=== PATIENT | male | born 1945 | race Caucasian/White ===

== ENCOUNTER 2019-06-20 11:55 | Inpatient (IN) | payer MEDICARE ==
[2019-06-20] VITALS (16 sets, daily range): BP systolic 94–160; BP diastolic 44–101
[~2019-06-20] VITALS: Ht 179.1 cm; Wt 90.7 kg
[~2019-06-20 11:55] MED LIST: ACET65TA; ACTO15TA; CARV3.12; CLAR5CHW; COUM1TAB14; FEOSOL; GLUC1000; LISI20TA5; SIMV80TA; VITA500T; [UNRECOGNIZED DRUG - OTHER]
[2019-06-20] MEDS ORDERED: CEFU1TAB20 PO ×2 (12:27→14:44)
[2019-06-20] MEDS ORDERED: NITR0.4S14 SL (12:27)
[2019-06-20] MEDS ORDERED: POTA20TA6 PO ×2 (12:27→14:44)
[2019-06-20] MEDS ORDERED: TORS20TA2 PO ×2 (12:27→14:44)
[2019-06-20] MEDS ORDERED: PRAD75CA5 PO ×2 (12:27→14:44)
[2019-06-20] MEDS ORDERED: AZIT-12 PO (12:27)
[2019-06-20] MEDS ORDERED: FUROSEMIDE 100 MG/10 ML VIAL (J1940) IV ONE (12:30)
--- NOTE | 2019-06-20 12:55 | REP ---
Clinical: Cough and dyspnea. Technique: Portable AP semiupright view. Comparison: 09/17/2009. Findings: Cardiomegaly is appreciated along with bilateral lower lobe infiltrates and possible small layering effusions. Pacemaker in satisfactory position. No pneumothorax. Skeletal structures intact. Impression: Cardiomegaly. Differential diagnosis includes pulmonary vascular congestion with edema versus pneumonia. Electronically Signed by Damion Jacobs MD 06/20/2019 12:46 P
[2019-06-20 13:00] LABS: VENOUS BASE EXCESS -0.2 (-2.0-2.0); VENOUS HCO3 26.4 MEQ/L (23.0-27.0); VENOUS O2 SATURATION 66.3 % (60.0-80.0); VENOUS PARTIAL PRESSURE CO2 51.1 mmHg (38.0-50.0); VENOUS PARTIAL PRESSURE O2 39.9 mmHg (30.0-50.0); VENOUS PH 7.331 UNITS (7.330-7.430); VENOUS STANDARD HCO3 23.6 MEQ/L
[2019-06-20 13:03] LABS: BASO % 0.1 % (0.0-1.0); HEMATOCRIT 37.8 % (42.0-52.0); HEMOGLOBIN 12.3 g/dl (13.5-17.5); LYMPH # 0.6 10^3/uL (1.5-5.0); LYMPH % 5.5 % (24.0-44.0); MEAN CORPUSCULAR HGB CONC 32.5 g/dl (32.0-36.5); MEAN CORPUSCULAR VOLUME 85.9 fl (80.0-96.0); MONO # 0.8 10^3/uL (0.0-0.8); MONO % 8.4 % (0.0-5.0); NEUTROPHILS # 8.5 10^3/uL (1.5-8.5); NEUTROPHILS % 85.5 % (36.0-66.0); PLATELET COUNT, AUTOMATED 281 10^3/uL (150-450); WHITE BLOOD COUNT 9.9 10^3/uL (4.0-10.0)
[2019-06-20 13:32] LABS: INR 2.86; PROTHROMBIN TIME 29.9 SECONDS (11.8-14.0)
[2019-06-20 13:35] LABS: ALBUMIN 3.3 GM/DL (3.2-5.2); ALT/SGPT 147 U/L (12-78); BILIRUBIN,DIRECT 0.4 MG/DL (0.0-0.2); BILIRUBIN,TOTAL 0.8 MG/DL (0.2-1.0); BLOOD UREA NITROGEN 91 MG/DL (7-18); CALCIUM LEVEL 9.4 MG/DL (8.8-10.2); CARBON DIOXIDE LEVEL 24 MEQ/L (21-32); CHLORIDE LEVEL 93 MEQ/L (98-107); CK-MB VALUE MASS 1.4 NG/ML (<3.6); CPK CREATINE PHOSPHOKINASE 71 U/L (39-308); CREATININE FOR GFR 3.45 MG/DL (0.70-1.30); GLOMERULAR FILTRATION RATE 18.7 (>42); GLUCOSE, FASTING 314 MG/DL (70-100); MB/CK RELATIVE INDEX 1.97 (< OR =4); NT-PRO BNP 592 PG/ML (<125); POTASSIUM SERUM 4.8 MEQ/L (3.5-5.1); SODIUM LEVEL 133 MEQ/L (136-145); TOTAL PROTEIN 6.6 GM/DL (6.4-8.2); TROPONIN I < 0.02 NG/ML (< 0.10)
[2019-06-20] MEDS ORDERED: D5W/0.9% SODIUM CHLORIDE 1,000 ML IV SCH (14:19)
[2019-06-20] MEDS ORDERED: ONDANSETRON 4MG/2ML VIAL (J2405) IV PRN (14:30)
[2019-06-20] MEDS ORDERED: PERCOCET 5MG/325MG TAB PO PRN (14:30)
[2019-06-20] MEDS ORDERED: LEVALBUTEROL 1.25 MG/0.5 ML CONCENTRATE NEB NEB PRN (14:30)
[2019-06-20] MEDS ORDERED: NORCO, ANEXSIA 5/325MG TABLET (HYDROcodone/ACETAMINOPHEN) PO PRN (14:30)
[2019-06-20] MEDS ORDERED: BISACODYL 10 MG SUPP PR PRN (14:30)
[2019-06-20] MEDS ORDERED: ACETAMINOPHEN TAB 650MG DOSE (2X325MG) PO PRN (14:30)
[2019-06-20] MEDS ORDERED: AZIT-10 PO (14:44)
[2019-06-20] MEDS ORDERED: BICA50TA9 PO (14:44)
[2019-06-20] MEDS ORDERED: ATOR80TA59 PO (14:44)
[2019-06-20] MEDS ORDERED: NITR4TASL SL (14:44)
[2019-06-20] MEDS ORDERED: METF-791 PO (14:44)
[2019-06-20] MEDS ORDERED: ASPI81TA85 PO (14:44)
[2019-06-20] MEDS ORDERED: APAP325T4 PO (14:44)
[2019-06-20] MEDS ORDERED: GLIP5TAB20 PO ×2 (14:44)
[2019-06-20] MEDS ORDERED: JARD1TAB3 PO (14:44)
[2019-06-20] MEDS ORDERED: FLOM0.4C39 PO (14:44)
--- NOTE | 2019-06-20 14:46 | ECHO ---
DATE OF PROCEDURE: 06/20/2019 AGE: 73 GENDER: Male PATIENT LOCATION: Currently in the emergency room being admitted to the intensive care unit due to this report. REFERRING PHYSICIAN: DOM Rene INDICATION: Marked systemic edema. Pericardial effusion (chest CT scan [facility]). 2D MEASUREMENTS: RV: 4.0 cm LV: 3.6 cm Septum: 1.3 cm Posterior wall: 1.3 cm Aortic root: 4.0 cm LA: 2.8 cm LVEF: 65% DOPPLER MEASUREMENTS: AV: 1.22 m/s LVOT: 0.56 m/s LVOT diameter: 2.0 cm Ascending aorta: 3.5 cm MV-E: 45, A: 57, EA ratio: 0.8 Early mitral deceleration time: 225 ms E prime medial: 5.4 A prime lateral: 9.7, E prime lateral 9.3 Average E/E prime ratio: 6.1/PCWP: 9.5 mmHg PV: 0.45 m/s Pulmonary artery acceleration time: 108 ms RVSP: 50 mmHg IVC: 3.0 cm COMMENTS Normal sinus rhythm with atrial sensing and tracking and consistent ventricular pacing. Paced QRS complexes with left bundle branch block (LBBB) configuration. M-mode and two-dimensional echocardiography was performed with pulsed, continuous wave, color flow and tissue Doppler studies. Moderate concentric left ventricle hypertrophy with paradoxical septal wall motion due to right ventricular pacing, yet preserved global resting systolic function. Current left atrial size is within normal limits with Doppler evidence of an impairment of left ventricle (LV) diastolic function but estimated mean left atrial pressure at this time within normal limits. Right ventricular free wall hypertrophy with at least mildly dilated right ventricular cavity. Preserved right ventricular free wall motion. At least moderately dilated right atrium and prominently dilated inferior vena cava with absent respiratory collapse in keeping with an elevated central venous pressure/right heart failure. Moderate aortic valvular sclerosis without stenosis or apparent insufficiency. At least borderline increased aortic root size, but normal proximal ascending aorta. Mildly thickened mitral annulus with "low flow" appearance to leaflet excursion, but no posterior systolic buckling. No more than trace mitral insufficiency. Normal appearing tricuspid valve with at least mild to moderate insufficiency. Pacing leads could be visualized traversing right heart structures, but no separate intracardiac mass. Huge pericardial effusion measuring as much as 3 cm anteriorly, 2.7 - 3 cm on the right side, 2.7 cm on the left side and 2.6 cm posteriorly. Undoubtedly contributing to compression of his heart with respiratory variation in pulsed flow signals. In light of the above test findings I have contacted Dr. Leonardo Martinez directly who is in the process of arranging the patient's admission to the intensive care unit for urgent pericardial drainage procedure.
[2019-06-20] MEDS ORDERED: MIDAZOLAM INJ 2 MG/2 ML VIAL (J2250) As Ordered ONE (14:48)
[2019-06-20] MEDS ORDERED: LIDOCAINE 1% MDV 20ML VIAL As Ordered ONE (14:48)
[2019-06-20] MEDS ORDERED: flumazeniL 0.5 MG/5 ML VIAL As Ordered ONE (14:49)
--- NOTE | 2019-06-20 14:58 | REP ---
Clinical: Cough and dyspnea. Cardiac and benign. Technique: Axial noncontrast images from the thoracic inlet to the upper abdomen with coronal and sagittal re-formations. Findings: A large pericardial effusion measuring 3.2 cm in with surrounds the heart along with pulmonary vascular congestion, interstitial edema, and moderate bilateral pleural effusions as well as upper abdominal ascites. Innumerable calcified mediastinal and hilar lymph nodes noted along with lingular and bibasilar atelectasis. Impression: 1. Large pericardial effusion along with pulmonary edema and scattered atelectasis. Electronically Signed by Damion Jacobs MD 06/20/2019 02:49 P
[2019-06-20] MEDS ORDERED: fentaNYL 100 MCG/2 ML INJECTION (J3010) As Ordered ONE (15:13)
[2019-06-20 15:20] LABS: ABG BASE EXCESS -2.1 (-2.0-2.0); ABG HCO3 21.3 MEQ/L (22.0-26.0); ABG O2 SATURATION 97.9 % (95.0-99.0); ABG PARTIAL PRESSURE CO2 32.2 mmHg (35.0-45.0); ABG PARTIAL PRESSURE O2 108.1 mmHg (75.0-100.0); ABG STANDARD HCO3 22.7 MEQ/L (22.0-26.0); ABG TOTAL CO2 22.3 MEQ/L (23.0-31.0); ABG pH (ARTERIAL) 7.438 UNITS (7.350-7.450)
[2019-06-20] MEDS ORDERED: BUPIVACAINE HCL 0.5% 10 ML VIAL As Ordered ONE (15:38)
[2019-06-20] MEDS ORDERED: BUPIVACAINE LIPOSOME/PF 1.3% 20ML VIAL (13.3MG/ML)(EXPAREL)(C9290 PER1MG) As Ordered ONE (15:38)
--- NOTE | 2019-06-20 16:14 | REP ---
Clinical: Status post pericardial drainage catheter. Comparison: 06/20/2019 at 12:41 p.m. Findings: Pericardial fluid is decreased and the cardiac silhouette is improved. Small/moderate pleural effusions (left greater than right) and bibasilar atelectasis unchanged. No pneumothorax. Skeletal structures intact. Impression: Decreased pericardial fluid. Pleural effusions and bibasilar atelectasis unchanged. Electronically Signed by Damion Jacobs MD 06/20/2019 04:06 P
[2019-06-20] MEDS ORDERED: fentaNYL 100 MCG/2 ML INJECTION (J3010) IV ONE (16:15)
[2019-06-20] MEDS ORDERED: MIDAZOLAM INJ 5 MG/ML VIAL (J2250) IV ONE (16:15)
[2019-06-20 16:32] LABS: LDH LACTATE DEHYDROGENASE 281 U/L (87-241)
[2019-06-20] MEDS ORDERED: FUROSEMIDE 40 MG/4 ML VIAL (J1940) IV ONE (17:00)
[2019-06-20 17:01] LABS: PH BODY FLUID 7.468 UNITS (NOT ESTABLISHED); SOURCE, BODY FLUID pH PLEURAL
[2019-06-20 17:09] LABS: AMYLASE, BODY FLUID 7 U/L (NOT ESTABLISHED); CHOLESTEROL, BODY FLUID < 50 MG/DL (NOT ESTABLISHED); LDH, BODY FLUID 982 U/L (NOT ESTABLISHED); SOURCE, BODY FLUID ALBUMIN PLEURAL; SOURCE, BODY FLUID AMYLASE PLEURAL; SOURCE, BODY FLUID CHOL PLEURAL; SOURCE, BODY FLUID GLUCOSE PLEURAL; SOURCE, BODY FLUID LDH PLEURAL; SOURCE, BODY FLUID TOT PROTEIN PLEURAL; SOURCE, BODY FLUID TRIG PLEURAL; TOTAL PROTEIN, BODY FLUID 4.2 G/DL (NOT ESTABLISHED); TRIGLYCERIDE, BODY FLUID 28 MG/DL (NOT ESTABLISHED)
[2019-06-20] MEDS ORDERED: DEXTROSE 50% 50 ML SYRINGE IV PRN (17:15)
[2019-06-20] MEDS ORDERED: GLUCOSE 4 GM CHEW TABLET PO PRN (17:15)
[2019-06-20] MEDS ORDERED: GLUCAGON FOR INJ 1 MG VIAL (J1610) SC PRN (17:15)
--- NOTE | 2019-06-20 17:15 | HPEPDOC ---
[facility] Medical History & Physical Date of Admission Jun 20, 2019 Date of Service: Jun 20, 2019 Attending Physician: BAMBI LEYVA MD History and Physical CHIEF COMPLAINT: Shortness of breath HISTORY OF PRESENT ILLNESS: Patient is a 73-year-old male who presented to the [facility] emergency department following a cardiology appointment with Dr. Lehman for shortness of breath with onset 3-4 days ago, associated with an intermittent cough productive of white phlegm and no blood. Pt stated that he has also had 7-8/10 abdominal pain onset yesterday morning which is now 9/10. He had nausea associated with his abdominal pain which resolved upon vomiting earlier today. Pt states that he has not been able to eat very much recently due to the nausea, and that he had only managed to eat custard and yogurt before vomiting this morning. He has had weight loss and gain related to his fluid status, but also states that he had lost approximately 20 pounds during the previous two months. Of note, he was recently hospitalized at [facility] for reported CHF exacerbation and was diuresed and treated for suspected pneumonia and sent home on Cefuroxime and Azithromycin. History was taken in the presence of pt's and daughter. History interrupted due to patient being taken for an urgent pericardiocentesis, and pt was less capable of answering questions afterwards due to altered mental status per midazolam administration for the procedure. PAST MEDICAL HISTORY: 1. Coronary artery disease s/p LAD stent 2010. 2. Congestive heart failure - diastolic. 3. Hypertension. 4. 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 5. Atrial fibrillation - paroxysmal. 6. Dilated aorta. 7. Aortic valvular disease. 8. Hyperlipidemia. 9. Chronic obstructive pulmonary disease. 10. Sleep apnea - noncompliant, no CPAP. 11. Gastroesophageal reflux disease. 12. Insulin-dependent diabetes. 13. Arthritis. 14. Restless leg syndrome. 15. Seasonal allergies. 16. Prostate cancer. 17. Obesity. PAST SURGICAL HISTORY: 1. Femoral hernia repair 2003. 2. Abdominal hernia repair 2004. 3. Colonoscopy May 2009 - read normal. 4. Dual chamber ventricular pacemaker placement 09/16/2009. 5. Cardiac catheterization with stenting of proximal LAD and angioplasty of mid- distal LAD 06/03/2011. 6. Hormone injections for elevated PSA 01/30/2016. 7. Pacemaker generator change 04/22/2016. 8. Vein stripping (left) 07/09/2017. SOCIAL HISTORY: Marital status: . Tobacco use: 8 pack-year history of cigarette use. Quit 34 years ago. FAMILY HISTORY: Father: Heart disease. Mother: Ovarian cancer. Siblings: Diabetes, heart disease. Hereditary Diseases: Heart disease. ALLERGIES: Please see below. REVIEW OF SYSTEMS: CONSTITUTIONAL: Endorses unexpected weight gain and fatigue. Denies fevers, chills, and night sweats. HEENT: Denies change in vision and hearing. CARDIOVASCULAR: Endorses exertional dyspnea. Denies chest pain. RESPIRATORY: Endorses dyspnea and cough. Denies wheezing. GASTROINTESTINAL: Endorses recent nausea, vomiting, and abdominal pain. GENITOURINARY: Denies dysuria, changes in urinary habits, and hematuria. NEUROLOGICAL: Endorses weakness and headache. HOME MEDICATIONS: Please see below. PHYSICAL EXAMINATION: VITAL SIGNS: Temperature 96.7, pulse 83, respiratory rate 18, blood pressure 113/82, pulse oximetry 96% on 2L O2 by nasal cannula. GENERAL APPEARANCE: Pt appears older than stated age, somnolent, and is lying propped-up in his hospital bed s/p pericardiocentesis. HEENT: Normocephalic, atraumatic. CARDIOVASCULAR: Regular rate and rhythm. 2/6 systolic murmur audible and best appreciated at the left sternal border. No S3 or S4 auscultated. LUNGS: Clear to auscultation b/l. No wheezes, rales, or rhonchi. ABDOMEN: No bruises, rashes, or bumps. Bowel sounds present in all 4 quadrants. Upper left quadrant notably tympanic. No tenderness in any of 4 quadrants. No organomegaly appreciable. EXTREMITIES: 2+ pitting edema present in b/l lower extremities. Dorsalis pedis pulses 2+ b/l. GENITOURINARY: Scrotal swelling present. Penis buried. PSYCHIATRIC: Before his procedure, pt was alert and oriented to person, place, time, and events with full affect. S/p pericardiocentesis and midazolam dosing, pt answers questions appropriately and is calm and cooperative, though a little confused. LABORATORY DATA: See below. IMAGIN. Chest x-ray, from report: "Cardiomegaly. Differential diagnosis includes pulmonary vascular congestion with edema versus pneumonia." 2. Chest CT, from report: "Large pericardial effusion along with pulmonary edema and scattered atelectasis." 3. Echocardiogram, from report: "Normal sinus rhythm with atrial sensing and tracking and consistent ventricular pacing. Paced QRS complexes with left bundle branch block (LBBB) configuration. M-mode and two-dimensional echocardiography was performed with pulsed, continuous wave, color flow and tissue Doppler studies. Moderate concentric left ventricle hypertrophy with paradoxical septal wall motion due to right ventricular pacing, yet preserved global resting systolic function. Current left atrial size is within normal limits with Doppler evidence of an impairment of left ventricle (LV) diastolic function but estimated mean left atrial pressure at this time within normal limits. Right ventricular free wall hypertrophy with at least mildly dilated right ventricular cavity. Preserved right ventricular free wall motion. At least moderately dilated right atrium and prominently dilated inferior vena cava with absent resp iratory collapse in keeping with an elevated central venous pressure/right heart failure. Moderate aortic valvular sclerosis without stenosis or apparent insufficiency. At least borderline increased aortic root size, but normal proximal ascending aorta. Mildly thickened mitral annulus with 'low flow' appearance to leaflet excursion, but no posterior systolic buckling. No more than trace mitral insufficiency. Normal appearing tricuspid valve with at least mild to moderate insufficiency. Pacing leads could be visualized traversing right heart structures, but no separate intracardiac mass. Huge pericardial effusion measuring as much as 3 cm anteriorly, 2.7-3 cm on the right side, 2.7 cm on the left side and 2.6 cm posteriorly. Undoubtedly contributing to compression of his heart with respiratory variation in pulsed flow signals. In light of the above test findings I have contacted Dr. Leonardo Martinez directly who is in the process of arranging the patient's admission to the intensive care unit for urgent pericardial drainage procedure." 4. Repeat chest x-ray, from report: "Decreased pericardial fluid. Pleural effusions and bibasilar atelectasis unchanged." MICROBIOLOGY: Please see below. ASSESSMENT: Pt is a 73-year-old male with a significant past medical history of congestive heart failure, atrial fibrillation, and coronary artery disease who presented to the [facility] emergency department complaining of shortness of breath and weight gain found to have pericardial effusion and acute renal failure. He was admitted to the ICU for pericardiocentesis and further workup. PLAN: 1. Pericardial effusion, possibly tamponade, secondary to congestive heart failure vs. uremia - Dr. Martinez was consulted and his assistance is appreciated. He performed pericardiocentesis and approximately 1 L of grossly bloody fluid was drained. Fluid analysis pending. - Resume regular diet as tolerated. 2. Acute renal failure - suspected cardiorenal - BUN elevated at 91, creatinine elevated at 3.45, GFR low at 18.7. - UA with culture and urine creatinine, sodium, osmolarity, and urea nitrogen all pending. - Renal ultrasound ordered. - Give 40mg IV furosemide once and monitor kidney function and urine output. 3. Elevated transaminases - possibly 2/2 hepatic congestion 2/2 CHF - AST 133, ALT 147 - Liver ultrasound ordered. - Will follow CMP 4. Diabetes 2 - Hold home metformin, glipizide, and Jardiance. - Beaver sliding scale insulin with hypoglycemic protocol. 5. Benign prostatic hypertrophy - Restart home Flomax. 6. Atrial fibrillation - Rate appears well controlled currently - Patient is on Pradaxa as an outpatient; will hold this for the next 24 hours (re: Pericardiocentesis performed today) 7. DVT prophylaxis: - c/w TEDs/Sequentials DISPOSITION: Monitor for improvement and continue workup. Vital Signs Vital Signs Date Time Temp Pulse Resp B/P (MAP) Pulse Ox O2 Delivery O2 Flow Rate FiO2 06/20/19 13:55 80 95 06/20/19 13:45 119/86 (97) 06/20/19 13:40 Room Air 06/20/19 12:09 18 06/20/19 11:57 97.0 Laboratory Data Labs 24H Laboratory Tests 2 06/20/19 12:50: Immature Granulocyte % (Auto) 0.5, Neutrophils (%) (Auto) 85.5H, Lymphocytes (%) (Auto) 5.5L, Monocytes (%) (Auto) 8.4H, Eosinophils (%) (Auto) 0.0, Basophils (%) (Auto) 0.1, Neutrophils # (Auto) 8.5, Lymphocytes # (Auto) 0.6L, Monocytes # (Auto) 0.8, Eosinophils # (Auto) 0.0, Basophils # (Auto) 0.0, Nucleated Red Blood Cells % (auto) 0.0, Prothrombin Time 29.9H, Prothromb Time International Ratio 2.86, Blood Gas Bicarbonate Standard 23.6, Venous Blood pH 7.331, Venous Blood Partial Pressure CO2 51.1H, Venous Blood Partial Pressure O2 39.9, Venous Blood Total Carbon Dioxide 28.0, Venous Blood HCO3 26.4, Venous Blood Oxygen Saturation 66.3, Venous Blood Base Excess -0.2, Anion Gap 16, Glomerular Filtration Rate 18.7L, Calcium Level 9.4, Total Bilirubin 0.8, Direct Bilirubin 0.4H, Aspartate Amino Transf (AST/SGOT) 133H, Alanine Aminotransferase (ALT/SGPT) 147H, Alkaline Phosphatase 323H, Total Creatine Kinase 71, Creatine Kinase MB 1.4, Creatine Kinase MB Relative Index 1.97, Troponin I < 0.02, GR-Wig-B-Type Natriuretic Peptide 592H, Total Protein 6.6, Albumin 3.3, Albumin/Globulin Ratio 1.00 CBC/BMP Laboratory Tests 06/20/19 12:50 Home Medications Scheduled Aspirin (Aspir 81) 81 Mg Tablet.dr, 81 MG PO DAILY Atorvastatin Calcium (Atorvastatin Calcium) 80 Mg Tablet, 80 MG PO QHS Azithromycin (Azithromycin) 250 Mg Tablet, 250 MG PO DAILY FOR 4 DAYS, STARTED 06/16/19 Bicalutamide (Bicalutamide) 50 Mg Tablet, 50 MG PO DAILY Cefuroxime Axetil (Cefuroxime) 250 Mg Tablet, 250 MG PO BID FOR 7 DAYS, FILLED 06/16/19 Dabigatran Etexilate Mesylate (Pradaxa) 75 Mg Capsule, 75 MG PO BID Empagliflozin (Jardiance) 25 Mg Tablet, 25 MG PO DAILY Glipizide (Glipizide ER) 5 Mg Tab.er.24, 2.5 MG PO DAILY VERFIED WITH PHARMACY THAT IT IS ER FORMULATION, RX WRITTEN FOR TABLET TO BE CUT IN HALF Glipizide (Glipizide ER) 5 Mg Tab.er.24, 5 MG PO QPM Metformin HCl (Metformin HCl ER) 500 Mg Tab.er.24h, 500 MG PO BID Potassium Chloride (Potassium Chloride) 20 Meq Tab.er.prt, 20 MEQ PO DAILY Tamsulosin HCl (Flomax) 0.4 Mg Capsule, 0.4 MG PO DAILY Torsemide (Torsemide) 20 Mg Tablet, 20 MG PO DAILY Scheduled PRN Acetaminophen (Acetaminophen) 325 Mg Tablet, 650 MG PO Q4H PRN for PAIN Nitroglycerin (Nitrostat) 0.4 Mg Tab.subl, 0.4 MG SL Q5MP PRN for CHEST PAIN Allergies Coded Allergies: diazepam (Verified Adverse Reaction, Intermediate, hallucinations/psychosis, 06/20/19) GME ATTESTATION GME ATTESTATION My faculty preceptor for this patient encounter was physically present during the encounter and was fully available. All aspects of the patient interview, examination, medical decision making process, and medical care plan development were reviewed and approved by the faculty preceptor. The faculty preceptor is aware and concurs with the plan as stated in the body of this note and will attest to such by his/her cosignature. ATTENDING NOTE I, Bambi Leyva, have independently examined this patient and performed my own physical exam, as well as reviewed the documentation and edited where necessary. I have discussed in detail with the resident / student the findings and plan of treatment as documented by the resident / student and edited their note. I agree with their findings and treatment plan and have edited their documentation. I will continue to follow the patient during this hospital stay. MONIKA CALDERON OMS-III Jun 20, 2019 14:57 ENRIQUE FRENCH MD Jun 20, 2019 17:20 BAMBI LEYVA MD Jun 20, 2019 17:27
[2019-06-20] MEDS ORDERED: LIDOCAINE 1% MDV 20ML VIAL SC ONE (17:30)
[2019-06-20] MEDS: HumaLOG INSULIN (NovoLOG) PER UNIT SC SCH ×2 (18:00→20:38)
[2019-06-20 18:16] LABS: PLEURAL FL COLOR RED (COLORLESS); SOURCE, BODY FLUID PLEURAL
[2019-06-20 18:17] LABS: APPEARANCE, BODY FLUID TURBID (CLEAR)
[2019-06-20 18:44] LABS: CREATININE,RANDOM URINE 43.4 MG/DL; OSMOLALITY URINE 349 MOSM/KG (500-800); SODIUM,RANDOM URINE 57 MEQ/L; UREA NITROGEN RANDOM URINE 284 MG/DL
--- NOTE | 2019-06-20 19:45 | REPVR ---
PROCEDURE INFORMATION: Exam: US Abdomen Complete Exam date and time: 06/20/2019 6:56 PM Age: 73 years old Clinical indication: Abnormal findings; Abnormal lab test; Abnormal kidney function lab tests and elevated liver enzymes; Additional info: Acute renal failure TECHNIQUE: Imaging protocol: Real-time ultrasound of the abdomen with image documentation. COMPARISON: No relevant prior studies available. FINDINGS: Pleural space: Bilateral pleural effusions. Liver: Normal. No mass. Gallbladder: Gallbladder wall thickening to 6.8 mm likely related to abundant pericholecystic fat. 4.6 mm polyp demonstrated within the gallbladder at the fundus. Common bile duct: The common bile duct measures 3 mm. No mass or choledocholithiasis. Pancreas: Visualized pancreas is unremarkable. Right kidney: Right kidney measures 10.5 x 4.8 x 5.1 cm. Left kidney: Left kidney measures 10.3 x 3.7 x 5.9 cm. Spleen: Spleen measures 9.5 cm maximally. Splenic volume 328 cc consistent with splenomegaly. Calcified splenic granulomata. Aorta: Normal. Measures 2.6 cm maximally. No aneurysm. Inferior vena cava: Normal. Intraperitoneal space: Upper abdominal ascites. IMPRESSION: 1. 4.6 mm polyp demonstrated within the gallbladder at the fundus. 2. No dilatation of the biliary tree. 3. Calcified splenic granulomata and splenomegaly. 4. Upper abdominal ascites and bilateral pleural effusions. Electronically signed by: Domingo Valiente On 06/20/2019 19:45:07 PM
[2019-06-20] MEDS: LEVALBUTEROL 1.25 MG/0.5 ML CONCENTRATE NEB NEB SCH (20:34)
[2019-06-20] MEDS: DOCUSATE SODIUM 100 MG CAP PO SCH (20:45)
[2019-06-20] MEDS: PERCOCET 5MG/325MG TAB PO PRN (23:29)
[2019-06-21] VITALS (24 sets, daily range): BP systolic 75–133; BP diastolic 51–83
[2019-06-21] MEDS: LEVALBUTEROL 1.25 MG/0.5 ML CONCENTRATE NEB NEB SCH ×4 (01:57→20:00)
[2019-06-21 05:04] LABS: BASO % 0.1 % (0.0-1.0); EOS % 0.2 % (0.0-3.0); HEMATOCRIT 35.3 % (42.0-52.0); HEMOGLOBIN 11.7 g/dl (13.5-17.5); LYMPH % 10.8 % (24.0-44.0); MEAN CORPUSCULAR HEMOGLOBIN 27.7 pg (27.0-33.0); MEAN CORPUSCULAR HGB CONC 33.1 g/dl (32.0-36.5); MEAN CORPUSCULAR VOLUME 83.6 fl (80.0-96.0); MONO # 1.3 10^3/uL (0.0-0.8); MONO % 14.3 % (0.0-5.0); NEUTROPHILS # 6.7 10^3/uL (1.5-8.5); NEUTROPHILS % 74.3 % (36.0-66.0); PLATELET COUNT, AUTOMATED 235 10^3/uL (150-450); RED BLOOD COUNT 4.22 10^6/uL (4.30-6.10); WHITE BLOOD COUNT 9.1 10^3/uL (4.0-10.0)
[2019-06-21 05:35] LABS: BLOOD UREA NITROGEN 100 MG/DL (7-18); CALCIUM LEVEL 9.2 MG/DL (8.8-10.2); CARBON DIOXIDE LEVEL 30 MEQ/L (21-32); CHLORIDE LEVEL 96 MEQ/L (98-107); GLOMERULAR FILTRATION RATE 23.8 (>42); GLUCOSE, FASTING 143 MG/DL (70-100); POTASSIUM SERUM 3.7 MEQ/L (3.5-5.1); SODIUM LEVEL 138 MEQ/L (136-145)
--- NOTE | 2019-06-21 06:24 | RO ---
DATE OF PROCEDURE: 06/20/2019 PREPROCEDURE DIAGNOSIS: Pericardial effusion, impending tamponade. POSTPROCEDURE DIAGNOSIS: Pericardial effusion, impending tamponade. PROCEDURE: Tube pericardiostomy and pericardiocentesis with echocardiographic control. SURGEON: Leonardo Martinez MD HOURLY SHIFT MANAGER: ANESTHESIA: PROCEDURE FINDINGS: The pericardium was drained of 1000 mL of bloody pericardial effusion. DESCRIPTION OF PROCEDURE: Under satisfactory moderate sedation directed by Dr. Chen 4 mg of Versed, the patient was prepped and draped in the usual sterile fashion. The appropriate window at the apex was found and the skin, subcutaneous tissue and pleura were infiltrated with 1% lidocaine. A bore needle was place and pericardial fluid which was bloody was found. A wire was placed and under echocardiographic control it was found to be within the pericardium. The tract was dilated and a percutaneous drainage catheter was then placed without difficulty under echocardiographic control. The patient was then drained of his pericardial fluid with the echocardiogram showing the fluid indeed being drained and disappearing. The catheter was secured to the chest wall with three #3-0 silk sutures and connected to the Pleur-evac. The patient tolerated the procedure well, and a chest x-ray is pending. [facility]
[2019-06-21 08:08] LABS: ALT/SGPT 147 U/L (12-78); BILIRUBIN,DIRECT 0.3 MG/DL (0.0-0.2); BILIRUBIN,TOTAL 0.6 MG/DL (0.2-1.0); TOTAL PROTEIN 5.8 GM/DL (6.4-8.2)
--- NOTE | 2019-06-21 08:27 | REP ---
Clinical: Pericardial effusion. Technique: PA and lateral. Comparison: 06/20/2019. Findings: Pericardial drainage catheter in stable position. Residual pericardial fluid cannot be excluded. Bibasilar atelectasis and small pleural effusions (left greater than right) are suggested and similar to prior examination. No obvious pneumothorax. Skeletal structures stable. Impression: 1. Bibasilar opacities and small pleural effusions. 2. Small amount of residual pericardial fluid cannot be excluded. Electronically Signed by Damion Jacobs MD 06/21/2019 08:18 A
[2019-06-21] MEDS: PANTOPRAZOLE 40MG TAB (PROTONIX) PO SCH (08:49)
[2019-06-21] MEDS: TAMSULOSIN 0.4 MG CAP PO SCH (08:49)
[2019-06-21] MEDS: DOCUSATE SODIUM 100 MG CAP PO SCH ×2 (08:49→21:26)
[2019-06-21] MEDS: MOM 30ML SUSPENSION UDC PO SCH (08:49)
[2019-06-21] MEDS: HumaLOG INSULIN (NovoLOG) PER UNIT SC SCH ×4 (08:49→21:00)
[2019-06-21] MEDS: PERCOCET 5MG/325MG TAB PO PRN (08:50)
[2019-06-21] MEDS: FUROSEMIDE 40 MG/4 ML VIAL (J1940) IV SCH ×2 (09:52→17:40)
--- NOTE | 2019-06-21 11:05 | ECHO ---
DATE OF STUDY: 06/20/2019 REFERRING PHYSICIAN: Dr. Leonardo Martinez INDICATION: Echocardiogram guidance during pericardiocentesis. HEIGHT: 70 inches WEIGHT: 207 pounds 4 ounces DESCRIPTION: Images were required before, during and following pericardiocentesis performed from the apical position. At the beginning of the study there was a large pericardial effusion, which was circumferential, and inferior vena cava was dilated at 2.7 cm with no respiratory variation suggestive of elevated central venous pressure of at least 20 mmHg. The left and right ventricles appeared to normal in size and systolic function and without respiratory collapse. Limited pulse wave Doppler was performed and showed approximately 25% respiratory variation at worst by visual assessment prior to pericardiocentesis. A right pleural effusion was noted. Pericardiocentesis was successful with drainage of nearly all of the pericardial effusion. Probably moderate aortic valve sclerosis. Mild mitral annular calcification. Color flow Doppler was not performed. CONCLUSIONS: 1. Presence of a large pericardial effusion with significant respiratory variation of intracardiac velocities suggesting probably hemodynamically significant pericardial effusion. 2. Successful drainage of the pericardial effusion by percutaneous pericardiocentesis from the apical position with only a very small amount of residual pericardial effusion. 3. Normal left ventricle size and systolic function. Normal right ventricle size and systolic function. 4. Dilated inferior venal cava with no respiratory variation at the beginning of the study consistent with elevated central venous pressure of at least 20 mmHg at the start of the procedure. 5. Right pleural effusion. 6. Probably moderate aortic valve sclerosis. 7. Mild mitral annular calcification.
[2019-06-21 11:06] LABS: INR 2.25; PROTHROMBIN TIME 24.7 SECONDS (11.8-14.0)
--- NOTE | 2019-06-21 13:02 | IPNPDOC ---
Text Note Date of Service The patient was seen on 06/21/19. NOTE SUBJECTIVE: Patient is s/p pericardiocentesis. Pt reports improved dyspnea and complete resolution of his abdominal pain. Pt complains of soreness at the site of his chest tube. Pt also complains of neck pain which worsens on right rotation, and he says that this is normal for him. Pt states that he felt clammy and itchy all over when he was put on antibiotics at [facility]. He states that he is not itchy now. History was limited yesterday by the need for emergent pericardiocentesis and subsequent altered mental status from sedation. Additional history also now avai lable. Patient stated that approximately 10 days ago he had developed worsening shortness of breath which he ignored. He stated that he had progressively gotten more short of breath over the past 10 days. He also admitted to a cough without significant sputum production. He endorsed a weight gain over the past few weeks. The patient states that he has not been able to lay flat for some time and sleeps with his head elevated. He denies any chest pain or pressure. SOCIAL HISTORY: Occupation: Owns a [employer]. Alcohol use: 2 beers/week. Illicit drug use: Denies. Diet: No special diet. Had been unable to eat much due to nausea. Caffeine use: 1 pot of coffee/day. Exercise: Via lifting things for work; had to stop approximately 06/06 due to illness. Sexual History: Not sexually active since his prostate procedure. REVIEW OF SYSTEMS: CONSTITUTIONAL: Endorses unexpected weight gain and loss. Denies fatigue, fevers, chills, and night sweats. HEENT: Denies change in vision and hearing. CARDIOVASCULAR: Endorses exertional dyspnea: must stop to rest at least once when climbing 1 flight of stairs. Denies chest pain, palpitations, claudication, lightheadedness, and syncope. RESPIRATORY: Endorses dyspnea and cough. Denies wheezing. GASTROINTESTINAL: Endorses recent nausea which resolved yesterday morning after vomiting once. Denies any other vomiting, abdominal pain, diarrhea, c onstipation, and hematochezia. GENITOURINARY: Endorses scrotal swelling. Denies dysuria, incontinence, urgency, incomplete emptying, and hematuria. SKIN: Denies rash, lesions, and pruritus. MUSCULOSKELETAL: Endorses arthritis in the shoulder, elbow, wrist and hand joints. Denies myalgias. NEUROLOGICAL: Endorses weakness and occasional headache. Denies vertigo. ENDOCRINE: Denies excessive thirst, polyuria, heat intolerance, and cold intolerance. PSYCHIATRIC: Denies change in mood, suicidality, and homicidality. OBJECTIVE: VITALS: Please see below. GENERAL: Pt appears stated age and is sitting comfortably in a chair in no acute distress. HEENT: Normocephalic, atraumatic. CARDIOVASCULAR: Regular rate and rhythm. 2/6 systolic murmur audible and best appreciated at the left sternal border. No S3 or S4 auscultated. Chest tube in place in lower left chest with mild tenderness but no crepitus around the site. PULMONARY: Clear to auscultation b/l. No wheezes, rales, or rhonchi. ABDOMEN: No rashes, bumps, or bruises. Bowel sounds present in all 4 quadrants. Abdomen soft with no organomegaly. EXTREMITIES: 2+ pitting edema present in b/l lower extremities. Pulses 2+ b/l in upper and lower extremities. PSYCHIATRIC: Pt is calm and cooperative. Full affect. Pt answers questions appropriately. OSTEOPATHIC: TART changes present in the left cervical paraspinal muscles, left trapezius, and left sternocleidomastoid. IMAGIN. Abdominal ultrasound, per report: "4.6 mm polyp demonstrated within the gallbladder at the fundus. No dilatation of the biliary tree. Calcified splenic granulomata and splenomegaly. Upper abdominal ascites and bilateral pleural effusions." 2. Repeat chest x-ray, per report: "Bibasilar opacities and small pleural effusions. Small amount of residual pericardial fluid cannot be excluded." ASSESSMENT: Pt is a 73-year-old male with a significant past medical history of congestive heart failure, atrial fibrillation, and coronary artery disease who presented to the [facility] emergency department complaining of shortness of breath and weight gain found to have pericardial effusion and acute renal failure. He was admitted to the ICU for pericardiocentesis and further workup. PLAN: 1. Pericardial effusion, possibly tamponade, secondary to congestive heart failure vs. uremia - Dr. Martinez was consulted and his assistance is appreciated. - Patients effusion is likely secondary to CHF. He does have an VIJAY which is likely from cardiorenal syndrome possibly leading to uremia and subsequently a pericardial effusion. Patient had received a pericardiocentesis yesterday. Lasix was given yesterday. Patients volume status appears to be improving. - Reported pruritus could have been due to uremia. - Resume regular diet as tolerated. 2. Acute renal failure - likely secondary to congestive heart failure - Patients VIJAY is likely secondary to Cardiorenal syndrome and poor perfusion due to pericardial effusion/tamponade - Patient has received a pericardiocentesis and has been diuresed with improvement in his Cr and GFR likely due to improved cardiac output. Will continue Lasix 40mg BID - Selected labs this morning: BUN increased to 100, creatinine decreased to 2.80, GFR increased to 23.8. - Pt is being diuresed with a total -2.892L fluid balance during this admission thus far. - FEUrea 18.3%, suggesting pre-renal disease. - UA showed 3+ glucose, consistent with pt's hyperglycemia, and osmolality 349. Culture pending. - Abdominal ultrasound showed no renal pathology. - Schedule 40mg IV furosemide BID and continue to monitor kidney function and urine output. 3. Elevated transaminases - possibly secondary to hepatic congestion secondary to CHF - Direct bilirubin decreased from 0.4 to 0.3, AST decreased from 133 to 110, and alkaline phosphatase decreased from 323 to 263 overnight. ALT remains stable at 147. - Abdominal ultrasound showed upper abdominal ascites. - Will follow CMP. 4. Bilateral Pleural Effusions 2/2 CHF exacerbation -Patient has bilateral pleural effusions. Likely secondary to his hypervolemic state. Patient currently states that he has no shortness of breath -Will continue with diuresis 5. Diabetes Type II - Continue to hold home metformin, glipizide, and Jardiance. - Continue sliding scale insulin with hypoglycemic protocol. 6. Benign prostatic hypertrophy - Continue home Flomax. 7. Atrial fibrillation - Rate appears well-controlled. - Patient is on Pradaxa as an outpatient; will resume 24 hours after the time of his pericardiocentesis yesterday. 7. DVT prophylaxis: - Continue TEDs/sequentials DISPOSITION: Monitor for improvement and continue workup. VS,Fishbone, I+O VS, Fishbone, I+O Laboratory Tests 06/20/19 12:50 06/21/19 04:30 Vital Signs Date Time Temp Pulse Resp B/P (MAP) Pulse Ox O2 Delivery O2 Flow Rate FiO2 06/21/19 06:00 72 119/68 (85) 94 Nasal Cannula 2.0 06/21/19 04:00 97.0 20 I&O- Last 24 Hours up to 6 AM 06/21/19 06:00 Intake Total 285 ml Output Total 2462 ml Balance -2177 ml GME ATTESTATION GME ATTESTATION My faculty preceptor for this patient encounter was physically present during the encounter and was fully available. All aspects of the patient interview, examination, medical decision making process, and medical care plan development were reviewed and approved by the faculty preceptor. The faculty preceptor is aware and concurs with the plan as stated in the body of this note and will attest to such by his/her cosignature. ATTENDING NOTE I, Bambi Leyva, have independently examined this patient and performed my own physical exam, as well as reviewed the documentation and edited where necessary. I have discussed in detail with the resident / student the findings and plan of treatment as documented by the resident / student and edited their note. I agree with their findings and treatment plan and have edited their documentation. I will continue to follow the patient during this hospital stay. MONIKA CALDERON OMS-III Jun 21, 2019 07:50 BAMBI LEYVA MD Jun 21, 2019 14:22 JERARDO RATLIFF DO Jun 21, 2019 14:43
--- NOTE | 2019-06-21 13:04 | CR ---
DATE OF CONSULTATION: 06/20/2019 The patient is seen at the request of Dr. Lehman for shortness of breath and a pericardial effusion. HISTORY OF PRESENT ILLNESS: The patient is a 73-year-old white male who gives a history of having been at [facility] for about a week where he was diuresed 10 pounds. His main complaint at that time was that his legs were severely swollen. No other information is available from that admission due to the urgent condition of this admission. Presently, he complains of increasing shortness of breath over the past week exacerbated over the past 2 days. His shortness of breath has been accompanied by cough with white to kyle sputum production. He denies fever or sweats, but says that he is always chilly. He has no dysphagia. He does not complain of any chest pain at all. This morning he had nausea with one bout of vomiting. He states that he has no energy over the last few days and is continually dizzy and lightheaded when he gets up over the last few days. He presented to Dr. Lehman's office and an echocardiogram there showed him to have a very large pericardial effusion with increased right ventricular pressures. PAST MEDICAL HISTORY: 1. Coronary artery disease with a stent to the left anterior descending coronary artery in 2010. 2. Diastolic congestive heart failure. 3. Hypertension. 4. Recurrent syncope requiring pacemaker. 5. Paroxysmal atrial fibrillation. 6. Gastroesophageal reflux disease 7. Diabetes. 8. History of prostate cancer. PAST SURGERIES: 1. Femoral hernia repair 2003. 2. Abdominal hernia in 2004. 3. Pacemaker in 2009. 4. Vein stripping in 2018. MEDICATIONS AT HOME: - aspirin 81 mg every day - atorvastatin 80 mg nightly - azithromycin 250 mg daily for the last 3 days - bicalutamide 50 mg every day - cefuroxime 250 mg twice a day for the past 3 days - Pradaxa 75 mg twice a day - Jardiance 25 mg every day - glipizide 2.5 mg every day and every evening for twice a day scheduling - metformin 500 mg twice a day - potassium chloride 20 mEq every day - tamsulosin 0.4 mg every day - torsemide 20 mg every day HABITS: Smoked cigarettes early in his life off and on. Uses alcohol very occasionally. No illicit drugs. Smoked cigars and chews tobacco. EXPOSURES: Cat at home. No dogs or birds. No exposures to tuberculosis. TRAVEL HISTORY: He has traveled to the [facility] and [facility] throughout his life. FAMILY HISTORY: Mother of ovarian cancer, father of heart disease. Siblings have diabetes and heart disease. ALLERGIES: DIAZEPAM with hallucinations. OCCUPATIONAL HISTORY: He worked construction, had his own construction company. Thinks that he has been exposed to asbestos but is not quite sure. REVIEW OF SYSTEMS: Constitutional: See history of present illness (HPI). Eyes: Without diplopia. Without amaurosis fugax. Without prior jaundice. Wears glasses. Mouth: Has upper dentures. Nose: Has occasional nose bleeds; last one about 3 weeks ago. Respiratory: See HPI. Cardiac: See HPI. Notably, he does not complain of orthopnea or paroxysmal nocturnal dyspnea. He still has peripheral edema but much less than it was before his admission to [facility]. GI: The above nausea and vomiting episode today, but prior none. Without dairrhea. Has occasional constipation. Without melena, hematochezia, hematemesis. : Without dysuria. Without hematuria. Does have a history of prostate cancer. Endocrine: Without thyroid disease but with diabetes. Neurologic: Without paresthesias, paralyses or prior seizures. Psychiatric: Without pathological anxiety, depression or psychoses. PHYSICAL EXAMINATION: Well-developed, well-nourished white male in moderate respiratory distress, short of breath. His vital signs show a temperature of 96.7, heart rate of 83, respiratory rate of 18, without the use of accessory muscles, who is 96% saturated on 2 liters nasal cannula and whose blood pressure is 113/82. It should be noted that his blood pressure in Dr. Lehman's office was 75 systolic. He has been given fluid since then. Eyes: Pupils equal, round and reactive to light. Extraocular movements intact. Sclerae nonicteric. Head is normocephalic. Nose: Without deformity. Mouth: Shows the mucous membranes to be pink and moist. Lips and commissures are without lesions. There is no thrush. He has upper dentures in place. He is edentulous on his jaw and without dentures. Neck is supple. There is no jugular venous distention. No subcutaneous emphysema. Trachea is midline. There are no carotid bruits. He has 2+ carotid upstrokes. There is no lymphadenopathy. Lungs: Show faint crackles during inspiration throughout. Percussion note is dull to left base. Cardiac Exam: Shows very distant heart sounds. I cannot feel his PMI. S1 and S2 I think are normal, and I hear no murmurs, gallops or rubs. Abdomen is soft, nontender. Bowel sounds are hypoactive but present. There is no hepatomegaly. No costovertebral angle (CVA) tenderness. Extremities: Show 3+ pretibial edema. No calf tenderness. No differential swelling of the upper extremities. Skin is warm, dry and perfused. Without cyanosis or mottling, including that of the nail beds and knees. Neurologic: Shows II-XII intact along with gross motor and gross sensation intact. Gait is not tested. Psychiatric: Shows him to be awake, alert and oriented with appropriate mood and affect, and conversational. INVESTIGATIONS: His white count is 9.9, with hemoglobin and hematocrit of 12.3 and 37.8, and a platelet count of 281. Differential shows 85% neutrophils, 5% lymphocytes, 8% monocytes. There are no immature forms, no toxic granulations. Electrolytes show a sodium of 133, with a BUN and creatinine of 91 and 3.45. Glucose is 314, with a calcium of 9.4 and a corresponding albumin of 3.3. AST and ALT are both elevated at 133 and 1.47, and his lactic acid is 4.6. It is notable that there is no reportable renal disease in the past. His PT/INR are 29.9 and 2.86 respectively. Urinalysis shows 3+ glucose, negative leukocyte esterase, and negative blood. His chest x-ray shows a large globular heart. CT scan shows a very large pericardial effusion with bilateral [id number] pleural effusions. I see no lung masses. Echocardiogram confirms the large pericardial effusion with the best window at the apex. IMPRESSION: 1. Pericardial effusion. 2. Impending tamponade. 3. Renal failure probably secondary to impending tamponade. 4. Diabetes. 5. History of prostate cancer. 6. Hypertension. 7. History of syncope with pacemaker placement. 8. Diastolic congestive failure. 9. Gastroesophageal reflux disease. PLAN AND DISCUSSION: The most pressing problem now is his impending tamponade and pericardial effusion. I will therefore undertake a tube pericardiostomy. I have the operating room on standby. We will attempt this at the bedside percutaneously under echocardiographic control. It is notable that he has no prior history of renal disease and I suspect his renal disease and lactic acidosis is secondary to hypoperfusion secondary to impending tamponade. I am hoping that once the tamponade is corrected that his renal function will return to normal. The diagnostic question of course is the respirophasic tamponade. We will send the specimens off for requisite hematologies, cytologies, bacteriologies, and chemistries. The simplest explanation would be a hemorrhagic effusion secondary to Pradaxa. My suspicion also is that his liver functions are compromised secondary to his impending tamponade reflected in the PT/INR, which should not increase with Pradaxa.
[2019-06-21 13:29] LABS: RHEUMATOID FACTOR QUANT < 10.0 IU/ML (<15.0)
--- NOTE | 2019-06-21 18:39 | IPN ---
DATE: 06/21/2019 Mr. Hart is doing much better today than he was yesterday. He can breathe much better. He was up out of bed to the chair today and actually walked a little bit to x-ray. He is still feeling fairly exhausted, however. His vital signs show a maximum temperature (t-max) of 97.5 with a heart rate that ranges between 84 and 77, combined paced and sinus rhythm. Respiratory rate is 19 to 21 and without the use of accessory muscles, who is 95% saturated on 2 liters nasal cannula, and whose blood pressure is ranging between 116/64 to 86/52. His intake and output the past 24 hours has been recorded as 285 in and 1932 out for a negativity of 1647 mL, which was 1000 mL from the pericardial tube. He has put out 30 mL from the pericardial tube since insertion. His weight today is 98.4 kg compared to 97.6 kg yesterday. PHYSICAL EXAMINATION: LUNGS: His lungs are actually rather clear with normal vesicular sounds without wheezes, rhonchi or rales. Percussion note is full to the diaphragm. CARDIAC EXAM: Without murmurs, clicks, but he does have a pericardial friction rub. I cannot feel his point of maximum impulse (PMI). S1, S2 are normal. ABDOMEN: Soft, nontender, slightly distended and tympanitic. Bowel sounds are positive. There is no abdominal tenderness. No hepatomegaly. No costovertebral angle tenderness. EXTREMITIES: Show 2 to 3+ pretibial edema. No calf tenderness. No differential swelling of the upper extremities. SKIN: Warm, dry and perfused without cyanosis or mottling, including that of the nail beds and knees. NECK: Supple. There is no jugular venous distention. No subcutaneous emphysema. Trachea is midline. MOUTH: Shows his mucous membranes to be pink and moist. Lips and commissures without lesions. There is no thrush. EYES: Show his pupils to be equal and reactive. Extraocular motion intact. Sclerae anicteric. NEUROLOGIC: Shows II through XII intact with gross motor and gross sensation intact. Gait is not tested. PSYCHIATRIC: Shows him to be awake and alert, oriented times three with appropriate mood and affect and conversational. LABORATORY DATA: His white count today is 9.1 with a hemoglobin and hematocrit of 11.7 and 35.3, essentially unchanged from yesterday's of 12.3 and 33.8. Platelet count is 235 and stable. Differential shows 74% neutrophils, 10% lymphocytes, 14% monocytes. There are no immature forms and no toxic granulations. Chemistries today show normal electrolytes with a BUN and creatinine of 100 and 2.80. This is better today than it was yesterday of 91 and 3.45. Glucose is 143. Lactic acid late last night was down to 3.6 from 4.6. AST and ALT are improving of 110 and 147, respectively compared to 133 and 147 yesterday. Albumin is 3.0 with a calcium of 9.2. Blood gases last night showed a pH of 7.43, pCO2 of 32 and pO2 of 108 prior to the tube pericardiostomy with a base excess of -2.1. PT/INR today are 24.7 and 2.25, respectively. His pericardial fluid has come back with a pH of 7.46 with LDH of 982 and corresponding serum LDH of 281 with a glucose of 260 and a total protein of 4.2 with a corresponding total protein of 6.6. His white cell count is 1662, 45% are mononuclear and lymphocytes and 53% are PMNs. This therefore looks like an exudative effusion, but I cannot quite characterize it as neutrophilic, as both cell lines are near equal in proportion. Bacteriology is negative for organisms. His chest x-ray today shows his heart normalized. Lung is fully expanded to the chest wall. There may be some posterior atelectasis on the left side on the lateral film, but I do not see an actual infiltrate per se. He did have bilateral pleural effusions and the opacity that I see in the posterior costophrenic angle may represent residual fluid. Pericardial tube is in good place. IMPRESSION: 1. Exudative pericardial effusion, source unknown, pathology pending. 2. Diabetes. 3. Diastolic heart failure. 4. History of coronary artery disease. 5. Hypertension. 6. Paroxysmal atrial fibrillation, on Pradaxa. 7. Status post dual lead pacemaker implantation. 8. Renal failure, probably secondary to tamponade. 9. History of prostate cancer. PLAN/DISCUSSION: At this point in time, the acute situation has been resolved. He is feeling better and breathing better. He does not really give a good history of a viral illness prior to yesterday. There was no rhinorrhea and no sore throat. He obviously has congestive heart failure (CHF) with increased edema, for which he was diuresed aggressively at [facility]. His systolic function on his echocardiogram is estimated at 65%, although that measurement could be suspect in the light of his large pericardial effusion. This does not look like a bacterial infective process. I will order screening rheumatologic studies. We will need to repeat the echocardiogram in the next few days. His renal function is improving and I expect it to continue to do so.
[2019-06-22] VITALS (15 sets, daily range): BP systolic 91–115; BP diastolic 54–71
[2019-06-22] MEDS: LEVALBUTEROL 1.25 MG/0.5 ML CONCENTRATE NEB NEB SCH ×4 (02:02→19:24)
[2019-06-22 04:54] LABS: BASO % 0.1 % (0.0-1.0); EOS % 0.4 % (0.0-3.0); HEMATOCRIT 37.8 % (42.0-52.0); HEMOGLOBIN 12.2 g/dl (13.5-17.5); LYMPH # 0.6 10^3/uL (1.5-5.0); LYMPH % 8.3 % (24.0-44.0); MEAN CORPUSCULAR HEMOGLOBIN 27.6 pg (27.0-33.0); MEAN CORPUSCULAR HGB CONC 32.3 g/dl (32.0-36.5); MEAN CORPUSCULAR VOLUME 85.5 fl (80.0-96.0); MONO % 12.9 % (0.0-5.0); NEUTROPHILS # 5.7 10^3/uL (1.5-8.5); NEUTROPHILS % 77.8 % (36.0-66.0); PLATELET COUNT, AUTOMATED 270 10^3/uL (150-450); RED BLOOD COUNT 4.42 10^6/uL (4.30-6.10); WHITE BLOOD COUNT 7.4 10^3/uL (4.0-10.0)
[2019-06-22 05:07] LABS: INR 1.91; PROTHROMBIN TIME 21.6 SECONDS (11.8-14.0)
[2019-06-22 05:18] LABS: BILIRUBIN,TOTAL 0.8 MG/DL (0.2-1.0); CALCIUM LEVEL 9.4 MG/DL (8.8-10.2); CREATININE FOR GFR 1.9 MG/DL (0.70-1.30); GLOMERULAR FILTRATION RATE 37.2 (>42); POTASSIUM SERUM 3.2 MEQ/L (3.5-5.1); TOTAL PROTEIN 6.6 GM/DL (6.4-8.2)
[2019-06-22] MEDS ORDERED: POTASSIUM CHLORIDE 10 MEQ SR TABLET PO ONE (07:00)
--- NOTE | 2019-06-22 08:09 | RO ---
DATE OF PROCEDURE: 06/20/2019 I was called by Dr. Martinez to assist with conscious sedation and monitoring of respiratory status during bedside pericardiocentesis. Patient was an ASA class III and Mallampati class III with upper dentures in place. I, Kraig Chen, provided conscious sedation during the procedure with minimal hypotension with the lowest systolic blood pressure in the high 90s. Oxygen saturation remained above 90% during the entire procedure. Patient received a total of 4 Versed and 25 mcg of fentanyl. I spent 45 minutes at the patient's bedside providing critical care and monitoring respiratory status during this critical time. Initially, I prescribed a normal saline bolus to increase preload. This was stopped after pericardial effusion was drained. Less than 500 mL had actually been administered. There were no observed complications. Patient is awake and verbal post procedure.
--- NOTE | 2019-06-22 08:13 | REP ---
Clinical: Pericardial effusion. Comparison: 06/21/2019. Findings: Cardiac silhouette is within normal limits and relatively stable. Bibasilar opacities suggest elements of atelectasis and small pleural effusions. No pneumothorax. Skeletal structures are intact. Pacemaker stable position. Impression: No significant change from prior examination. Bibasilar opacities and small pleural effusion similar to prior examination. The cardiac silhouette is stable. Electronically Signed by Damion Jacobs MD 06/22/2019 08:04 A
[2019-06-22] MEDS: HumaLOG INSULIN (NovoLOG) PER UNIT SC SCH ×4 (08:46→20:32)
[2019-06-22] MEDS: MOM 30ML SUSPENSION UDC PO SCH (08:46)
[2019-06-22] MEDS: FUROSEMIDE 40 MG/4 ML VIAL (J1940) IV SCH ×2 (08:46→16:28)
[2019-06-22] MEDS: PANTOPRAZOLE 40MG TAB (PROTONIX) PO SCH (08:47)
[2019-06-22] MEDS: DOCUSATE SODIUM 100 MG CAP PO SCH ×2 (08:47→20:29)
[2019-06-22] MEDS: TAMSULOSIN 0.4 MG CAP PO SCH (08:47)
--- NOTE | 2019-06-22 09:39 | IPNPDOC ---
Text Note Date of Service The patient was seen on 06/22/19. NOTE SUBJECTIVE: Today is hospital day 3. Patient reports subjective improvement. Pt states that he continues to have some tenderness at the site of his drain. He denies any other chest pain. Dyspnea, abdominal pain, nausea, and vomiting have not returned. Pt has been able to pass stool and urine. Pt has been able to tolerated his regular diet, and he has been able to ambulate well. He states that the ambulation did not make him short of breath. Pt had a mild nosebleed which has resolved, but his nose remains dry. Pt states that his neck and head pain have completely resolved at this time. Patient has no further complaints at this time. OBJECTIVE: VITALS: Please see below. GENERAL: Pt appears stated age and is sitting comfortably in a chair in no acute distress. HEENT: Normocephalic, atraumatic. Mild resolved epistaxis. CARDIOVASCULAR: Regular rate and rhythm. 2/6 systolic murmur audible and best appreciated at the left sternal border. No S3 or S4 auscultated. Chest tube in place in lower left chest with mild tenderness but no crepitus around the site. PULMONARY: Clear to auscultation b/l. No wheezes, rales, or rhonchi. ABDOMEN: No rashes, bumps, or bruises. Bowel sounds present in all 4 quadrants. Abdomen soft with no organomegaly. EXTREMITIES: 2+ pitting edema present in b/l lower extremities. PSYCHIATRIC: Pt is calm and cooperative. Full affect. Pt answers questions appropriately. ASSESSMENT: Pt is a 73-year-old male with a significant past medical history of congestive heart failure, atrial fibrillation, and coronary artery disease who presented to the [facility] emergency department complaining of shortness of breath and weight gain found to have pericardial effusion and acute renal failure. He was admitted to the ICU for pericardiocentesis and further workup. PLAN: 1. Pericardial effusion, possibly tamponade, secondary to congestive heart failure vs. uremia - Dr. Martinez was consulted and his assistance is appreciated. Will discuss the timing of drain removal with Dr. Martinez. - Patients effusion is likely secondary to CHF. He does have an VIJAY which is likely from cardiorenal syndrome, possibly leading to uremia and a subsequent pericardial effusion. - Continue furosemide 40mg BID. Patient's volume status appears to be improving. 2. Acute renal failure - likely secondary to congestive heart failure (Cardiorenal) - Patient's VIJAY is likely secondary to cardiorenal syndrome and poor perfusion due to pericardial effusion/tamponade. - Patient has received a pericardiocentesis and has been diuresed with improvement in his creatinine and GFR likely due to improved cardiac output. Continue diuresis mentioned above. - BUN and creatinine decreased this morning, but are still high. GFR continues to trend up. - Pt is being diuresed with a total -3.797L fluid balance during this admission thus far. - Reflex urine culture not done due to UA result. - Continue to monitor kidney function and urine output. 3. Elevated transaminases - possibly secondary to hepatic congestion secondary to CHF - AST and alkaline phosphatase continue to trend down. ALT now trending down and was 120 this morning. - Continue to follow CMP. 4. Bilateral pleural effusions secondary to CHF exacerbation - Patient has bilateral pleural effusions, likely secondary to his hypervolemic state. Patient currently denies dyspnea. - Continue diuresis described above. 5. Diabetes Type II - Continue to hold home metformin, glipizide, and Jardiance. - Continue sliding scale insulin with hypoglycemic protocol. 6. Benign prostatic hypertrophy - Continue home Flomax. 7. Chronic atrial fibrillation - Rate appears well-controlled. - Pt is on Pradaxa as an outpatient. Will discuss with Dr. Martinez regarding when pt should resume; will likely resume today 7. DVT prophylaxis: - Continue TEDs/sequentials DISPOSITION: Monitor for improvement and continue workup. VS,Fishbone, I+O VS, Fishbone, I+O Laboratory Tests 06/22/19 04:20 Vital Signs Date Time Temp Pulse Resp B/P (MAP) Pulse Ox O2 Delivery O2 Flow Rate FiO2 06/22/19 06:00 80 16 108/71 (83) 94 Nasal Cannula 2.0 06/22/19 04:00 97.9 I&O- Last 24 Hours up to 6 AM 06/22/19 06:00 Intake Total 1250 ml Output Total 2690 ml Balance -1440 ml GME ATTESTATION GME ATTESTATION My faculty preceptor for this patient encounter was physically present during the encounter and was fully available. All aspects of the patient interview, examination, medical decision making process, and medical care plan development were reviewed and approved by the faculty preceptor. The faculty preceptor is aware and concurs with the plan as stated in the body of this note and will attest to such by his/her cosignature. ATTENDING NOTE I, Bambi France, have independently examined this patient and performed my own physical exam, as well as reviewed the documentation and edited where necessary. I have discussed in detail with the resident / student the findings and plan of treatment as documented by the resident / student and edited their note. I agree with their findings and treatment plan and have edited their documentation. I w ill continue to follow the patient during this hospital stay. MONIKA CALDERON OMS-III Jun 22, 2019 07:20 BAMBI FRANCE MD Jun 22, 2019 15:28
[2019-06-22] MEDS ORDERED: SODIUM CHLORIDE NASAL 0.65% SPRAY BTL (OCEAN) PRN (10:30)
--- NOTE | 2019-06-22 14:10 | IPN ---
DATE: 06/22/2019 Mr. Hart is feeling better today, although he is still a bit down in the dumps. He has gotten up to the chair and he has walked around. His pain is well controlled at the pericardial tube insertion site. His vital signs show a maximum temperature (t-max) of 98.3, with a heart rate that ranges between 78 and 81. Blood pressure is ranging between 100/58 to 115/67 and he is 94% saturated on room air. His respiratory rate is 18 to 20 without the use of accessory muscles. His intake and output the past 24 hours has been recorded as 1080 in and 2280 out for a negativity of 1200 mL. He has put out 30 mL from the pericardial tube and 2250 mL in urine. He has only taken in 1080 mL and he states that he has decreased appetite. On physical examination, his lungs show equal breath sounds on either side. He still has some bibasilar rales. Most are clearing with coughing, but there is still a residual faint rale during inspiration. Percussion note is full to the diaphragm. Cardiac exam shows either a murmur or a rub over the left precordium. I cannot tell whether this is an actual rub or whether it represents a systolic murmur. I cannot feel his point of maximum impulse (PMI). S1, S2 are normal. Abdomen is soft, nontender. Bowel sounds are positive. There is no hepatomegaly. No costovertebral angle tenderness. Extremities show 3 to 4+ pretibial edema. No calf tenderness. No differential swelling of the upper extremities. Skin is warm, dry and perfused without cyanosis or mottling, including that of the nail beds and knees. Neck is supple. There is no jugular venous distention. No subcutaneous emphysema. Trachea is midline. Mouth shows his mucous membranes to be pink and moist. Lips and commissures without lesions. There is no thrush. Eyes show his pupils to be equal and reactive. Extraocular motion intact. Sclerae anicteric. Neurologic shows II through XII intact along with gross motor and gross sensation intact. Gait is not tested. Psychiatric shows him to be awake and alert, oriented times three with appropriate mood and affect and conversational. His white count today is 7.4 with a hemoglobin and hematocrit of 12.2 and 37.8 and a platelet count of 270. Platelet count is stable and hemoglobin is inching up from 11.7 to 12.2. Differential shows 77% neutrophils, 8% lymphocytes, 12% monocytes. His chemistries today show a potassium of 3.2, with a total CO2 of 34. BUN and creatinine are improving and are now 82 and 1.90, compared to 100 and 2.80 yesterday and 3.45 on admission. AST and ALT are also improving, down to 16 60 and 120 respectivecly, from admission liver functions of 133 and 147. Calcium is 9.0 with a corresponding albumin of 3.0. His PT and INR is also improving with a PT of 21.6 and 1.91, down from 29.9 and 2.86 on admission. There are no blood gases on him today. His rheumatoid factor is negative. ANABEL screen is still pending. I discussed his pericardial fluid yesterday. Pathology is still pending. Microbiology shows no anaerobic growth and no aerobic growth. There were no organisms seen on gram stain. His chest x-ray today shows an almost normal heart size. Diaphragms are a bit flat. He looks as though he has a left sided pleural effusion on the lateral chest x-ray. I see no other infiltrates. IMPRESSION: 1. Exudative pericardial effusion, source unknown, pathology pending. 2. Diabetes. 3. Diastolic heart failure. 4. History of coronary artery disease. 5. Hypertension. 6. Paroxysmal atrial fibrillation, on Pradaxa. 7. Status post dual lead pacemaker implantation in the remote past. 8. Renal failure secondary to tamponade. 9. History of prostate cancer. PLAN/DISCUSSION: I am still not sure where his pericardial fluid is coming from. I will obtain an echo to see what the heart function looks like now that the pericardial fluid is completely drained. Tamponade with hypotension is to blame for his kidneys as I think that the kidney dysfunction is secondary to the tamponade, pericardial effusion and hypoperfusion. His lactic acid came down after the tube pericardiostomy. ANABEL is still pending. I suspect we are going to find increased pulmonary artery pressures and increased right heart pressures secondary to his diastolic dysfunction. That would explain the occurrence of his pericardial effusion because of elevated right sided pressures. ELISABET
[2019-06-22] MEDS: DABIGATRAN ETEXILATE 75 MG CAP (PRADAXA) PO SCH (20:29)
[2019-06-23] VITALS: BP 109/63
[2019-06-23] MEDS: LEVALBUTEROL 1.25 MG/0.5 ML CONCENTRATE NEB NEB SCH ×2 (01:33→07:54)
[2019-06-23 04:00] VITALS: BP 100/65
[2019-06-23 05:11] LABS: BASO % 0.2 % (0.0-1.0); EOS # 0.1 10^3/uL (0.0-0.5); EOS % 1.3 % (0.0-3.0); HEMATOCRIT 39.9 % (42.0-52.0); HEMOGLOBIN 12.2 g/dl (13.5-17.5); LYMPH # 0.9 10^3/uL (1.5-5.0); LYMPH % 14.3 % (24.0-44.0); MEAN CORPUSCULAR HEMOGLOBIN 26.8 pg (27.0-33.0); MEAN CORPUSCULAR HGB CONC 30.6 g/dl (32.0-36.5); MEAN CORPUSCULAR VOLUME 87.7 fl (80.0-96.0); MONO # 0.8 10^3/uL (0.0-0.8); MONO % 13.7 % (0.0-5.0); NEUTROPHILS # 4.2 10^3/uL (1.5-8.5); NEUTROPHILS % 70.2 % (36.0-66.0); PLATELET COUNT, AUTOMATED 253 10^3/uL (150-450); RED BLOOD COUNT 4.55 10^6/uL (4.30-6.10)
[2019-06-23 05:21] LABS: INR 1.6; PROTHROMBIN TIME 18.8 SECONDS (11.8-14.0)
[2019-06-23 05:31] LABS: ALBUMIN 3.1 GM/DL (3.2-5.2); BILIRUBIN,TOTAL 0.9 MG/DL (0.2-1.0); CALCIUM LEVEL 9.5 MG/DL (8.8-10.2); CREATININE FOR GFR 1.47 MG/DL (0.70-1.30); POTASSIUM SERUM 3.3 MEQ/L (3.5-5.1); TOTAL PROTEIN 6.6 GM/DL (6.4-8.2)
[2019-06-23] MEDS ORDERED: POTASSIUM CHLORIDE 10 MEQ SR TABLET PO ONE (07:15)
--- NOTE | 2019-06-23 07:57 | REP ---
Clinical: Pericardial effusion. Comparison: 06/22/2019. Mediastinum and cardiac silhouette are stable. Bibasilar trace atelectasis and small pleural effusions are essentially unchanged. No pneumothorax. Skeletal structures intact. Impression: No change from prior examination. Electronically Signed by Damion Jacobs MD 06/23/2019 07:49 A
[2019-06-23 08:00] VITALS: BP 138/75
[2019-06-23] MEDS ORDERED: TORSEMIDE 20 MG TAB PO SCH (09:00)
[2019-06-23] MEDS: MOM 30ML SUSPENSION UDC PO SCH (09:00)
[2019-06-23] MEDS: TAMSULOSIN 0.4 MG CAP PO SCH (09:40)
[2019-06-23] MEDS: DABIGATRAN ETEXILATE 75 MG CAP (PRADAXA) PO SCH (09:40)
[2019-06-23] MEDS: DOCUSATE SODIUM 100 MG CAP PO SCH (09:40)
[2019-06-23] MEDS: PANTOPRAZOLE 40MG TAB (PROTONIX) PO SCH (09:40)
[2019-06-23] MEDS: HumaLOG INSULIN (NovoLOG) PER UNIT SC SCH ×2 (09:41→13:19)
[2019-06-23 10:06] LABS: ANTINUCLEAR ANTIBODIES DIRECT Negative (Negative)
--- NOTE | 2019-06-23 10:55 | DS.PDOC ---
Discharge Summary General Date of Admission Jun 20, 2019 at 14:28 Date of Discharge Jun 23, 2019 Attending Physician: AR LEYVA MD Specialist/Consultants Involve: Leonardo Martinez M.D. Discharge Summary PROCEDURES PERFORMED DURING STAY: Tube pericardiostomy and pericardiocentesis with echocardiographic control. ADMITTING DIAGNOSES: 1. Pericardial effusion with possible tamponade secondary to congestive heart failure. 2. Acute renal failure secondary to congestive heart failure. 3. Elevated transaminase. 4. Chronic atrial fibrillation. 5. Benign prostatic hypertrophy. 6. Diabetes Type II. DISCHARGE DIAGNOSES: 1. Pericardial effusion with possible tamponade secondary to congestive heart failure. 2. Acute renal failure secondary to congestive heart failure. 3. Elevated transaminase secondary to hepatic congestion secondary to congestive heart failure. 4. Bilateral pleural effusions secondary to congestive heart failure 4. Atrial fibrillation. 5. Benign prostatic hypertrophy. 6. Diabetes Type II. COMPLICATIONS/CHIEF COMPLAINT: Pericardial Effusion. HISTORY OF PRESENT ILLNESS: Patient is a 73-year-old male who presented to the [facility] emergency department following a cardiology appointment with Dr. Lehman for shortness of breath with onset 10 days previously and worsening over the course of 3-4 days, associated with an intermittent cough productive of white phlegm and no blood. The patient stated that he has not been able to lay flat for some time and sleeps with his head elevated. Pt stated that he has also had 7-8/10 abdominal pain onset the day before admission which worsened to 9/10 on admission. He had nausea associated with his abdominal pain which resolved upon vomiting the morning of admission. Pt states that he had not been able to eat very much recently due to the nausea, and that he had only managed to eat custard and yogurt most days. He has had weight loss and gain related to his fluid status, but also stated that he had lost approximately 20 pounds during the previous two months. Of note, he was recently hospitalized at [facility] for reported CHF exacerbation and was diuresed and treated for suspected pneumonia and sent home on Cefuroxime and Azithromycin. HOSPITAL COURSE: Pt was admitted to the intensive care unit and Leonardo Martinez MD performed a bedside tube pericardiostomy and pericardiocentesis with echocardiographic control. 1000mL of bloody fluid was drained during the pr ocedure, and the tube was attached to a Pleur-evac. 132mL of additional fluid drained over the course of the following 2 days, and Dr. Martinez removed the tube on the second day. Pt's dyspnea resolved immediately following the pericardiocentesis and did not recur. Pt was diuresed and showed some imp rovement of bilateral lower extremity edema. Pt's renal and liver function were monitored continuously, and they showed consistent improvement. Serial chest x- rays were performed to monitor cardiopulmonary fluid status. PT evaluation on day of discharge showed that he will be safe to discharge home to his previous situation with a new prescription for a rolling walker. DISCHARGE MEDICATIONS: Please see below. ALLERGIES: Please see below. PHYSICAL EXAMINATION ON DISCHARGE: VITAL SIGNS: Please see below. GENERAL: Pt appears stated age and is sitting comfortably in a chair in no acute distress. HEENT: Normocephalic, atraumatic. CARDIOVASCULAR EXAMINATION: Regular rate and rhythm. 2/6 systolic murmur audible and best appreciated at the left sternal border. No S3 or S4 auscultated. Site of former chest tube is bandaged. RESPIRATORY EXAMINATION: Clear to auscultation b/l. No wheezes, rales, or rhonchi. ABDOMINAL EXAMINATION: No rashes, bumps, or bruises. Abdomen soft with no organomegaly. EXTREMITIES: 2+ pitting edema present in b/l lower extremities. SKIN: Warm, pink, dry. PSYCHIATRIC EXAMINATION: Pt is calm and cooperative. Full affect. Pt answers questions appropriately. LABORATORY DATA: Please see below. IMAGIN. Echocardiogram, per report: "Normal sinus rhythm with atrial sensing and tracking and consistent ventricular pacing. Paced QRS complexes with left bundle branch block (LBBB) configuration. M-mode and two-dimensional echocardiography was performed with pulsed, continuous wave, color flow and tissue Doppler studies. Moderate concentric left ventricle hypertrophy with paradoxical septal wall motion due to right ventricular pacing, yet preserved global resting systolic function. Current left atrial size is within normal limits with Doppler evidence of an impairment of left ventricle (LV) diastolic function but estimated mean left atrial pressure at this time within normal limits. Right ventricular free wall hypertrophy with at least mildly dilated right ventricular cavity. Preserved right ventricular free wall motion. At least moderately dilated right atrium and prominently dilated inferior vena cava with absent respiratory collapse in keeping with an elevated central venous pressure/right heart failure. Moderate aortic valvular sclerosis without stenosis or apparent insufficiency. At least borderline increased aortic root size, but normal proximal ascending aorta. Mildly thickened mitral annulus with "low flow" appearance to leaflet excursion, but no posterior systolic buckling. No more than trace mitral insufficiency. Normal appearing tricuspid valve with at least mild to moderate insufficiency. Pacing leads could be visualized traversing right heart structures, but no separate intracardiac mass. Huge pericardial effusion measuring as much as 3 cm anteriorly, 2.7 - 3 cm on the right side, 2.7 cm on the left side and 2.6 cm posteriorly. Undoubtedly contributing to compression of his heart with respiratory variation in pulsed flow signals. In light of the above test findings I have contacted Dr. Leonardo Martinez directly who is in the process of arranging the patient's admission to the intensive care unit for urgent pericardial drainage procedure." 2. Initial chest x-ray, per report: "Cardiomegaly. Differential diagnosis incl udes pulmonary vascular congestion with edema versus pneumonia." 3. Chest CT, per report: "Large pericardial effusion along with pulmonary edema and scattered atelectasis" 4. Repeat chest x-ray, per report: "Decreased pericardial fluid. Pleural effusions and bibasilar atelectasis unchanged." 5. Abdominal ultrasound, per report: "4.6 mm polyp demonstrated within the gallbladder at the fundus. No dilatation of the biliary tree. Calcified splenic granulomata and splenomegaly. Upper abdominal ascites and bilateral pleural effusions." 6. Second repeat chest x-ray, per report: "Bibasilar opacities and small pleural effusions. Small amount of residual pericardial fluid cannot be excluded." 7. Third repeat chest x-ray, per report: "No significant change from prior examination. Bibasilar opacities and small pleural effusion similar to prior examination. The cardiac silhouette is stable." 8. Final chest x-ray, per report: "No change from prior examination." PROGNOSIS: Guarded. ACTIVITY: As tolerated. DIET: 1800mL/24 hour fluid restriction. 2g sodium diet. DISCHARGE PLAN: Discharge home with new prescription for a rolling walker. DISPOSITION: Discharge home. DISCHARGE INSTRUCTIONS: 1. Follow up with Dr. Lehman and primary care provider 7-10. 2. Continue diuretic medications on an outpatient basis and remain mobile. 3. Weigh yourself daily and call primary care provider if weight gain is greater than 1 pound in 1 day. 4. Return to emergency department in case of shortness of breath. ITEMS TO FOLLOWUP ON ON OUTPATIENT: 1. Chronic congestive heart failure. 2. Continuing diuresis and fluid restriction. DISCHARGE CONDITION: Stable. TIME SPENT ON DISCHARGE: Greater than 30 minutes. Vital Signs/I&Os Vital Signs Date Time Temp Pulse Resp B/P (MAP) Pulse Ox O2 Delivery O2 Flow Rate FiO2 06/23/19 08:00 97.5 91 18 138/75 (96) 96 Room Air 06/23/19 04:00 2.0 I&O- Last 24 Hours up to 6 AM 06/23/19 06:00 Intake Total 1050 ml Output Total 2730 ml Balance -1680 ml Laboratory Data Labs 24H Laboratory Tests 2 06/22/19 11:41: Bedside Glucose (Misc Panel) 204H 06/22/19 17:26: Bedside Glucose (Misc Panel) 203H 06/22/19 20:22: Bedside Glucose (Misc Panel) 131H 06/23/19 04:47: Immature Granulocyte % (Auto) 0.3, Neutrophils (%) (Auto) 70.2H, Lymphocytes (%) (Auto) 14.3L, Monocytes (%) (Auto) 13.7H, Eosinophils (%) (Auto) 1.3, Basophils (%) (Auto) 0.2, Neutrophils # (Auto) 4.2, Lymphocytes # (Auto) 0.9L, Monocytes # (Auto) 0.8, Eosinophils # (Auto) 0.1, Basophils # (Auto) 0.0, Nucleated Red Blood Cells % (auto) 0.0, Prothrombin Time 18.8H, Prothromb Time International Ratio 1.60, Anion Gap 8, Glomerular Filtration Rate 50.0, Calcium Level 9.5, Total Bilirubin 0.9, Aspartate Amino Transf (AST/SGOT) 48H, Alanine Aminotransferase (ALT/SGPT) 103H, Alkaline Phosphatase 235H, Total Protein 6.6, Albumin 3.1L, Albumin/Globulin Ratio 0.89L CBC/BMP Laboratory Tests 06/23/19 04:47 FSBS Laboratory Tests Test 06/22/19 11:41 06/22/19 17:26 06/22/19 20:22 Range/Units Bedside Glucose (Misc Panel) 204 203 131 83-110 MG/DL Microbiology Microbiology 06/20/19 Acid Fast Stain, Received Pending 06/20/19 Mycobacterial Culture, Received Pending 06/20/19 Fungal Smear, Received Pending 06/20/19 Fungal Culture, Received Pending 06/20/19 Gram Stain - Final, Complete 06/20/19 Anaerobic Culture - Final, Complete 06/20/19 Body Fluid Culture - Final, Complete Discharge Medications Scheduled Aspirin (Aspir 81) 81 Mg Tablet.dr, 81 MG PO DAILY, (Reported) Atorvastatin Calcium (Atorvastatin Calcium) 80 Mg Tablet, 80 MG PO QHS, (Reported) Bicalutamide (Bicalutamide) 50 Mg Tablet, 50 MG PO DAILY, (Reported) Dabigatran Etexilate Mesylate (Pradaxa) 75 Mg Capsule, 75 MG PO BID, (Reported) Empagliflozin (Jardiance) 25 Mg Tablet, 25 MG PO DAILY, (Reported) Glipizide (Glipizide ER) 5 Mg Tab.er.24, 2.5 MG PO DAILY, (Reported) VERFIED WITH PHARMACY THAT IT IS ER FORMULATION, RX WRITTEN FOR TABLET TO BE CUT IN HALF Glipizide (Glipizide ER) 5 Mg Tab.er.24, 5 MG PO QPM, (Reported) Metformin HCl (Metformin HCl ER) 500 Mg Tab.er.24h, 500 MG PO BID, (Reported) Potassium Chloride (Potassium Chloride) 20 Meq Tab.er.prt, 20 MEQ PO DAILY, (Reported) Tamsulosin HCl (Flomax) 0.4 Mg Capsule, 0.4 MG PO DAILY, (Reported) Torsemide (Torsemide) 20 Mg Tablet, 20 MG PO DAILY, (Reported) Scheduled PRN Acetaminophen (Acetaminophen) 325 Mg Tablet, 650 MG PO Q4H PRN for PAIN, (Reported) Nitroglycerin (Nitrostat) 0.4 Mg Tab.subl, 0.4 MG SL Q5MP PRN for CHEST PAIN, (Reported) Allergies Coded Allergies: diazepam (Verified Adverse Reaction, Intermediate, hallucinations/ps ychosis, 06/20/19) GME ATTESTATION GME ATTESTATION My faculty preceptor for this patient encounter was physically present during the encounter and was fully available. All aspects of the patient interview, examination, medical decision making process, and medical care plan development were reviewed and approved by the faculty preceptor. The faculty preceptor is aware and concurs with the plan as stated in the body of this note and will attest to such by his/her cosignature. ATTENDING NOTE I, Vijesh Leyva, have independently examined this patient and performed my own physical exam, as well as reviewed the documentation and edited where necessary. I have discussed in detail with the resident / student the findings and plan of treatment as documented by the resident / student and edited their note. I agree with their findings and treatment plan and have edited their documentation. I will continue to follow the patient during this hospital stay. Time spent on discharge 35 minutes MONIKA CALDERON S-III Jun 23, 2019 10:55 AR LEYVA MD Jun 23, 2019 16:15
--- NOTE | 2019-06-23 14:14 | ECGEPIP ---
[facility] - ED Test Date: 2019-06-20 [facility] Department: Room: [place] [address] Gender: Male Test Design Engineer: leila : 1945 Requested By: PRIETO MAURICE Order Number: [id number] Reading MD: Sidney Lala Measurements Intervals [place] Rate: 80 P: 74 WA: 183 QRS: -68 QRSD: 170 T: 108 QT: 448 QTc: 519 Interpretive Statements ELECTRONIC VENTRICULAR PACEMAKER Comparison tracing not on file Electronically Signed on 06-23-2019 14:14:01 EST by Sidney Lala
== END 2019-06-23 14:27 | disposition home or self-care (01) | DRG 314 ==
LOC: M ED 11:55 → M ED INP 14:28 → M ICU 14:50 → M PCU 06-23 08:14
PROVIDERS: ADMIT Thoracic Surgery (Cardiothoracic Vascular Surgery); ATTEND Internal Medicine
PROC: 0W9D30Z Drainage of Pericardial Cavity with Drainage Device, Percutaneous Approach (ICD-10-PCS; principal; 2019-06-20)
DX: I31.3 Pericardial effusion (noninflammatory) (principal); I50.31 Acute diastolic (congestive) heart failure; N17.9 Acute kidney failure, unspecified; I38 Endocarditis, valve unspecified; I31.4 Cardiac tamponade; N40.1 Benign prostatic hyperplasia with lower urinary tract symptoms; I25.10 Atherosclerotic heart disease of native coronary artery without angina pectoris; I48.0 Paroxysmal atrial fibrillation; E78.5 Hyperlipidemia, unspecified; J44.9 Chronic obstructive pulmonary disease, unspecified; G47.33 Obstructive sleep apnea (adult) (pediatric); K21.9 Gastro-esophageal reflux disease without esophagitis; E11.65 Type 2 diabetes mellitus with hyperglycemia; M06.9 Rheumatoid arthritis, unspecified; G25.81 Restless legs syndrome; J30.2 Other seasonal allergic rhinitis; Z85.46 Personal history of malignant neoplasm of prostate; E66.9 Obesity, unspecified; Z68.28 Body mass index [BMI] 28.0-28.9, adult; Z95.0 Presence of cardiac pacemaker; Z95.5 Presence of coronary angioplasty implant and graft; Z91.19 Patient's noncompliance with other medical treatment and regimen; Z79.82 Long term (current) use of aspirin; Z79.84 Long term (current) use of oral hypoglycemic drugs; Z79.899 Other long term (current) drug therapy; Z88.8 Allergy status to other drugs, medicaments and biological substances

== ENCOUNTER → 2020-01-22 | Outpatient (REF) | payer MEDICARE ==
[~2020-01-22] MED LIST changes: +APAP325T4 PO; +ASPI81TA86 PO; +ATOR80TA59 PO; +AZIT-10 PO; +AZIT-12 PO; +BICA50TA9 PO; +CEFU1TAB20 PO; +FLOM0.4C39 PO; +GLIP5TAB20 PO; +JARD1TAB3 PO; +METF-838 PO; +NITR0.4S14 SL; +NITR4TASL SL; +POTA20TA6 PO; +PRAD75CA5 PO; +TORS20TA2 PO
[2020-04-10 06:14] LABS: CREATININE, URINE 43.3 MG/DL; MALB URINE SIEMENS < 5.0 MG/L; MAU/CREAT RATIO 11.5 MCG/MG (0.0-30.0)
== END ==
LOC: M LAB REF 09:37
PROVIDERS: ATTEND Nurse Practitioner Family
DX: E11.65 Type 2 diabetes mellitus with hyperglycemia (principal)

== ENCOUNTER → 2021-05-12 | Outpatient (REF) | payer MEDICARE ==
[2021-05-12 18:37] LABS: CREATININE, URINE 94.7 MG/DL; MALB URINE SIEMENS 8.8 MG/L; MAU/CREAT RATIO 9.2 MCG/MG (0.0-30.0)
== END ==
LOC: M LAB REF 16:47
PROVIDERS: ATTEND Nurse Practitioner Family
DX: E11.65 Type 2 diabetes mellitus with hyperglycemia (principal)

== ENCOUNTER → 2022-03-31 | Outpatient (REF) | payer MEDICARE ==
[~2022-03-31] MED LIST changes: +POTA-151 PO; -POTA20TA6 PO
[2022-03-31 17:59] LABS: CREATININE, URINE 17.1 MG/DL; MALB URINE SIEMENS < 5.0 MG/L; MAU/CREAT RATIO 29.2 MCG/MG (0.0-30.0)
== END ==
LOC: M LAB REF 16:42
PROVIDERS: ATTEND Nurse Practitioner Family
DX: E11.65 Type 2 diabetes mellitus with hyperglycemia (principal)

== ENCOUNTER → 2023-02-23 | Outpatient (REF) | payer OTHER | LOC: M LABSMT 13:36 | PROVIDERS: ATTEND Urology | DX: Z85.46 Personal history of malignant neoplasm of prostate (principal); Z53.9 Procedure and treatment not carried out, unspecified reason ==

== ENCOUNTER → 2023-03-25 | Outpatient (CLI) | payer MEDICARE, OTHER ==
[2023-03-25 16:15] LABS: BLOOD UREA NITROGEN 23 MG/DL (9-23); CARBON DIOXIDE LEVEL 26 MMOL/L (20-31); CHLORIDE LEVEL 104 MMOL/L (98-107); CREATININE FOR GFR 0.94 MG/DL (0.70-1.30); GLOMERULAR FILTRATION RATE > 60.0 (>42); GLUCOSE, FASTING 116 MG/DL (74-106); POTASSIUM SERUM 4.2 MMOL/L (3.5-5.1); SODIUM LEVEL 137 MMOL/L (136-145)
== END ==
LOC: M PLALAB 11:40
PROVIDERS: ATTEND Urology
DX: R33.9 Retention of urine, unspecified (principal); C61 Malignant neoplasm of prostate

== ENCOUNTER → 2023-03-31 | Outpatient (CLI) | payer OTHER ==
[~2023-03-31] MED LIST changes: +ISOVUE-370 76% 100ML VIAL As Ordered ONE
== END ==
LOC: M RAD 12:06
PROVIDERS: ATTEND Urology
DX: R33.9 Retention of urine, unspecified (principal); C61 Malignant neoplasm of prostate
CPT/HCPCS: 74177; 78306; A9503; Q9967

== ENCOUNTER → 2023-04-07 | Outpatient (REF) | payer OTHER ==
[~2023-04-07] MED LIST changes: -ISOVUE-370 76% 100ML VIAL As Ordered ONE
== END ==
LOC: M LABSMT 14:17
PROVIDERS: ATTEND Urology
DX: Z53.9 Procedure and treatment not carried out, unspecified reason (principal); Z87.898 Personal history of other specified conditions

== ENCOUNTER → 2023-08-16 | Outpatient (REF) | payer OTHER ==
[~2023-08-16] MED LIST changes: +ASPI-615 PO; +DULA3PEN; +ELIQ5TAB PO; +FINA5TAB2 PO; +GABA-1171 PO; +LANTINJ4 SQ; +LEVO1TAB39 PO; +LOSA25TA13 PO; +QC F0.52 PO; +TAMS1CAP17 PO; +TORS10TA3 PO
== END ==
LOC: M SMT 13:11
PROVIDERS: ATTEND Urology
DX: R33.9 Retention of urine, unspecified (principal)

== ENCOUNTER 2023-08-23 07:03 | Day surgery (SDC) | payer MEDICARE ==
[~2023-08-23] VITALS: Ht 180.3 cm; Wt 84.8 kg
[~2023-08-23 07:03] MED LIST changes: -LEVO1TAB39 PO; +LR 1,000 ML IV SCH
[2023-08-23] MEDS ORDERED: fentaNYL 100 MCG/2 ML INJECTION As Ordered ONE (07:49)
[2023-08-23] MEDS ORDERED: ACETAMINOPHEN 1000MG 100ML IV BAG As Ordered ONE (07:49)
[2023-08-23] MEDS ORDERED: LIDOCAINE 2% 100MG/5ML SDV (FOR ANES.) As Ordered ONE (07:49)
[2023-08-23] MEDS ORDERED: propofoL 200 MG/20 ML VIAL As Ordered ONE (07:49)
[2023-08-23] MEDS ORDERED: ONDANSETRON 4MG 2ML VIAL As Ordered ONE (07:49)
[2023-08-23] MEDS: CIPROFLOXACIN 400 MG in IV 1 EA IV ONE (09:00)
[2023-08-23] MEDS: ceFAZolin SOD 2 GM in IV 1 EA IV ONE (09:10)
[2023-08-23] MEDS ORDERED: ONDANSETRON 4MG 2ML VIAL IV PRN (09:40)
[2023-08-23] MEDS ORDERED: LR 1,000 ML IV SCH (09:40)
[2023-08-23] MEDS ORDERED: fentaNYL 100 MCG/2 ML INJECTION IV PRN (09:40)
[2023-08-23] MEDS ORDERED: HYDROMORPHONE HCL 0.5 MG/ 0.5 ML SYRINGE IV PRN (09:40)
[2023-08-23] MEDS ORDERED: LEVO1TAB39 PO (09:47)
[2023-08-23] MEDS: oxyCODONE 5MG TAB PO PRN (10:24)
[2023-08-23 11:53] VITALS: BP 169/87; TEMP 97.2; O2SAT 97
== END 2023-08-23 12:23 | disposition home or self-care (01) ==
LOC: M SDC 07:03
PROVIDERS: ATTEND Urology
DX: C61 Malignant neoplasm of prostate (principal); R97.20 Elevated prostate specific antigen [PSA]; Z92.3 Personal history of irradiation; N47.1 Phimosis; I48.91 Unspecified atrial fibrillation; E11.9 Type 2 diabetes mellitus without complications; I25.10 Atherosclerotic heart disease of native coronary artery without angina pectoris; I10 Essential (primary) hypertension; Z95.0 Presence of cardiac pacemaker; Z88.8 Allergy status to other drugs, medicaments and biological substances; Z79.899 Other long term (current) drug therapy; Z79.01 Long term (current) use of anticoagulants; Z79.4 Long term (current) use of insulin; Z79.84 Long term (current) use of oral hypoglycemic drugs; Z79.85 Long-term (current) use of injectable non-insulin antidiabetic drugs; F17.220 Nicotine dependence, chewing tobacco, uncomplicated
CPT/HCPCS: 52601; 88305; J0131; J0690; J0744; J1100; J2405; J3010

== ENCOUNTER → 2024-02-07 | Outpatient (CLI) | payer MEDICARE ==
[~2024-02-07] MED LIST changes: +APAL240T PO; +ASPI81CH33 PO; +BICA50TA4 PO; -BICA50TA9 PO; +ELIQ5TAB; +FLOM0.4C39; +IRON65TA2 PO; +LEVO1TAB39 PO; +LOSA25TA13; -LR 1,000 ML IV SCH; +OMEG10002 PO; +OXYB10TA23; +PYRI1TAB5 PO; +RELU120T; +RELU120T PO; +SLOW160T12 PO; +THERTAB52 PO; +TRUL10IN SC; +VITA100T59 PO; +VITAD400CA FT
== END ==
LOC: M PLAIMG 10:11
PROVIDERS: ATTEND Physician Assistant
DX: I35.2 Nonrheumatic aortic (valve) stenosis with insufficiency (principal); I77.810 Thoracic aortic ectasia

== ENCOUNTER → 2024-02-15 | Outpatient (CLI) | payer MEDICARE ==
[~2024-02-15] MED LIST changes: +GASTROGRAFIN SOLUTION 30ML As Ordered ONE; +ISOVUE-370 76% 100ML VIAL As Ordered ONE
== END ==
LOC: M RAD 15:44
PROVIDERS: ATTEND Dietitian, Registered
DX: C61 Malignant neoplasm of prostate (principal); K40.90 Unilateral inguinal hernia, without obstruction or gangrene, not specified as recurrent
CPT/HCPCS: 71260; 74177; Q9963; Q9967

== ENCOUNTER → 2024-03-14 | Outpatient (CLI) | payer MEDICARE ==
[~2024-03-14] MED LIST changes: -GASTROGRAFIN SOLUTION 30ML As Ordered ONE; -ISOVUE-370 76% 100ML VIAL As Ordered ONE
== END ==
LOC: M RAD 10:15
PROVIDERS: ATTEND Dietitian, Registered
DX: C61 Malignant neoplasm of prostate (principal)
CPT/HCPCS: 78306; A9503

== ENCOUNTER → 2024-05-09 | Outpatient (CLI) | payer MEDICARE | LOC: M ONCR 13:10 | PROVIDERS: ATTEND General Practice | DX: C79.51 Secondary malignant neoplasm of bone (principal); C61 Malignant neoplasm of prostate; M25.511 Pain in right shoulder; Z92.3 Personal history of irradiation; Z80.0 Family history of malignant neoplasm of digestive organs; Z79.01 Long term (current) use of anticoagulants; Z79.4 Long term (current) use of insulin; Z79.818 Long term (current) use of other agents affecting estrogen receptors and estrogen levels; Z79.82 Long term (current) use of aspirin; Z79.84 Long term (current) use of oral hypoglycemic drugs; Z79.85 Long-term (current) use of injectable non-insulin antidiabetic drugs; Z79.899 Other long term (current) drug therapy; Z95.0 Presence of cardiac pacemaker; Z88.5 Allergy status to narcotic agent; Z88.8 Allergy status to other drugs, medicaments and biological substances ==

== ENCOUNTER 2024-05-17 09:39 | Outpatient (RCR) | payer MEDICARE | END 2024-05-20 | LOC: M ONCR 09:39 | PROVIDERS: ATTEND General Practice | DX: Z51.0 Encounter for antineoplastic radiation therapy (principal); C79.51 Secondary malignant neoplasm of bone ==

== ENCOUNTER 2024-06-02 08:32 | Outpatient (RCR) | payer MEDICARE ==
[~2024-06-02 08:32] MED LIST changes: +LIDVISCBTL PO
== END 2024-06-20 ==
LOC: M ONCR 08:32
PROVIDERS: ATTEND General Practice
DX: Z51.0 Encounter for antineoplastic radiation therapy (principal); C79.51 Secondary malignant neoplasm of bone

== ENCOUNTER → 2024-08-14 | Outpatient (CLI) | payer MEDICARE ==
[~2024-08-14] MED LIST changes: -ELIQ5TAB; -FLOM0.4C39; +ISOVUE-370 76% 100ML VIAL ONE; -LOSA25TA13; -OXYB10TA23; +OXYB10TA23 PO
== END ==
LOC: M PLAIMG 14:45
PROVIDERS: ATTEND Internal Medicine Medical Oncology
DX: C25.9 Malignant neoplasm of pancreas, unspecified (principal)
CPT/HCPCS: 71260; 74177; Q9967

== ENCOUNTER → 2024-08-17 | Outpatient (CLI) | payer MEDICARE ==
[~2024-08-17] VITALS: Ht 180.3 cm; Wt 86.2 kg
[~2024-08-17] MED LIST changes: -ISOVUE-370 76% 100ML VIAL ONE
[2024-08-17 13:44] VITALS: BP 157/77; O2SAT 97
== END ==
LOC: M PAL 13:26
PROVIDERS: ATTEND Family Medicine
DX: Z51.5 Encounter for palliative care (principal); C61 Malignant neoplasm of prostate; C79.51 Secondary malignant neoplasm of bone; C77.9 Secondary and unspecified malignant neoplasm of lymph node, unspecified; Z92.3 Personal history of irradiation; Z79.899 Other long term (current) drug therapy; Z88.5 Allergy status to narcotic agent; Z88.8 Allergy status to other drugs, medicaments and biological substances; Z79.84 Long term (current) use of oral hypoglycemic drugs; Z79.4 Long term (current) use of insulin; Z79.82 Long term (current) use of aspirin; Z79.01 Long term (current) use of anticoagulants; Z79.85 Long-term (current) use of injectable non-insulin antidiabetic drugs

== ENCOUNTER → 2024-08-22 | Outpatient (CLI) | payer MEDICARE | LOC: M ONCR 09:20 | PROVIDERS: ATTEND General Practice | DX: C61 Malignant neoplasm of prostate (principal); C79.51 Secondary malignant neoplasm of bone; G89.3 Neoplasm related pain (acute) (chronic); Z79.01 Long term (current) use of anticoagulants; Z79.4 Long term (current) use of insulin; Z79.82 Long term (current) use of aspirin; Z79.84 Long term (current) use of oral hypoglycemic drugs; Z79.85 Long-term (current) use of injectable non-insulin antidiabetic drugs; Z79.818 Long term (current) use of other agents affecting estrogen receptors and estrogen levels; Z79.899 Other long term (current) drug therapy; Z88.5 Allergy status to narcotic agent; Z88.8 Allergy status to other drugs, medicaments and biological substances; Z92.3 Personal history of irradiation ==

== ENCOUNTER → 2024-10-03 | Outpatient (CLI) | payer MEDICARE ==
[~2024-10-03] MED LIST changes: +GLIP-318 PO; -GLIP5TAB20 PO; +MELO15TA28 PO; +PRED5TA PO; +XTAN40CA PO; +ZYTI250T PO
[2024-10-03 12:05] LABS: BASO % 0.5 % (0.0-1.0); EOS # 0.1 10^3/uL (0.0-0.5); EOS % 1.4 % (0.0-3.0); HEMOGLOBIN 12.1 g/dl (13.5-17.5); LYMPH % 16.8 % (24.0-44.0); MEAN CORPUSCULAR HEMOGLOBIN 30.4 pg (27.0-33.0); MEAN CORPUSCULAR HGB CONC 31.8 g/dl (32.0-36.5); MEAN CORPUSCULAR VOLUME 95.5 fl (80.0-96.0); MONO # 0.6 10^3/uL (0.0-0.8); MONO % 11.3 % (2.0-8.0); NEUTROPHILS # 3.9 10^3/uL (1.5-8.5); NEUTROPHILS % 69.6 % (36.0-66.0); PLATELET COUNT, AUTOMATED 171 10^3/uL (150-450); RED BLOOD COUNT 3.98 10^6/uL (4.30-6.10); WHITE BLOOD COUNT 5.6 10^3/uL (4.0-10.0)
[2024-10-03 12:33] LABS: ALBUMIN 3.4 G/DL (3.2-5.2); BILIRUBIN,TOTAL 0.4 MG/DL (0.3-1.2); CALCIUM LEVEL 9.3 MG/DL (8.3-10.6); CREATININE FOR GFR 0.89 MG/DL (0.70-1.30); GLOMERULAR FILTRATION RATE 87.2 (>42); POTASSIUM SERUM 4.5 MMOL/L (3.5-5.1); TOTAL PROTEIN 5.8 G/DL (5.7-8.2)
[2024-10-03 12:52] LABS: PROSTATIC SPECIFIC AG MONITOR 131.99 NG/ML (< 4.00)
== END ==
LOC: M ONCR 09:48
PROVIDERS: ATTEND General Practice
DX: C79.51 Secondary malignant neoplasm of bone (principal); C61 Malignant neoplasm of prostate; Z92.3 Personal history of irradiation; Z88.5 Allergy status to narcotic agent; Z88.8 Allergy status to other drugs, medicaments and biological substances; Z79.1 Long term (current) use of non-steroidal anti-inflammatories (NSAID); Z79.82 Long term (current) use of aspirin; Z79.899 Other long term (current) drug therapy; Z79.85 Long-term (current) use of injectable non-insulin antidiabetic drugs; Z79.01 Long term (current) use of anticoagulants; Z79.84 Long term (current) use of oral hypoglycemic drugs
CPT/HCPCS: 36415; 80053; 84153; 85025; G0463

== ENCOUNTER → 2024-10-03 | Outpatient (CLI) | payer MEDICARE ==
[~2024-10-03] VITALS: Ht 180.3 cm; Wt 82.9 kg
[2024-10-03 10:23] VITALS: BP 122/73; O2SAT 98
== END ==
LOC: M PAL 09:50
PROVIDERS: ATTEND Physician Assistant
DX: Z51.5 Encounter for palliative care (principal); Z66 Do not resuscitate; C61 Malignant neoplasm of prostate; C79.51 Secondary malignant neoplasm of bone; C77.9 Secondary and unspecified malignant neoplasm of lymph node, unspecified; Z92.3 Personal history of irradiation; Z79.891 Long term (current) use of opiate analgesic; Z88.5 Allergy status to narcotic agent; Z88.8 Allergy status to other drugs, medicaments and biological substances; Z79.82 Long term (current) use of aspirin; Z79.899 Other long term (current) drug therapy

== ENCOUNTER → 2024-11-02 | Outpatient (CLI) | payer MEDICARE ==
[~2024-11-02] MED LIST changes: +DEXA4TA PO; -FLOM0.4C39 PO; +ONDA-83 PO; +TAMS-18 PO
[2024-11-02] MEDS: XOFIGO(RADIUM-223 DICHLORIDE) 180UCI 6ML VL CHARGE IS PER UCI IV STA (11:08)
== END ==
LOC: M ONCR 10:16
PROVIDERS: ATTEND General Practice
DX: C61 Malignant neoplasm of prostate (principal); C79.51 Secondary malignant neoplasm of bone
CPT/HCPCS: 77300; 79101; A9606

== ENCOUNTER → 2024-12-28 | Outpatient (CLI) | payer MEDICARE ==
[~2024-12-28] MED LIST changes: +DEXA2TA PO; +XOFIGO(RADIUM-223 DICHLORIDE) 180UCI 6ML VL CHARGE IS PER UCI IV STA
== END ==
LOC: M ONCR 13:47
PROVIDERS: ATTEND General Practice
DX: C61 Malignant neoplasm of prostate (principal); C79.51 Secondary malignant neoplasm of bone

== ENCOUNTER → 2025-01-25 | Outpatient (CLI) | payer MEDICARE ==
[~2025-01-25] MED LIST changes: +TRIA1CR80 TOP; +VENTAER INH; -XOFIGO(RADIUM-223 DICHLORIDE) 180UCI 6ML VL CHARGE IS PER UCI IV STA
[2025-01-25] MEDS: XOFIGO(RADIUM-223 DICHLORIDE) 180UCI 6ML VL CHARGE IS PER UCI IV STA (11:10)
== END ==
LOC: M ONCR 10:43
PROVIDERS: ATTEND General Practice
DX: C61 Malignant neoplasm of prostate (principal); C79.51 Secondary malignant neoplasm of bone

== ENCOUNTER → 2025-02-22 | Outpatient (CLI) | payer MEDICARE ==
[2025-02-22] MEDS: XOFIGO(RADIUM-223 DICHLORIDE) 180UCI 6ML VL CHARGE IS PER UCI IV STA (11:13)
== END ==
LOC: M ONCR 10:37
PROVIDERS: ATTEND General Practice
DX: C61 Malignant neoplasm of prostate (principal); C79.51 Secondary malignant neoplasm of bone
CPT/HCPCS: 79101; A9606; G0463

== ENCOUNTER → 2025-02-28 | Outpatient (CLI) | payer MEDICARE | LOC: M PAL 09:50 | PROVIDERS: ATTEND Physician Assistant | DX: Z51.5 Encounter for palliative care (principal); Z66 Do not resuscitate; C61 Malignant neoplasm of prostate; C77.9 Secondary and unspecified malignant neoplasm of lymph node, unspecified; Z79.51 Long term (current) use of inhaled steroids; Z92.3 Personal history of irradiation; Z79.891 Long term (current) use of opiate analgesic; Z88.5 Allergy status to narcotic agent; Z79.899 Other long term (current) drug therapy; Z79.82 Long term (current) use of aspirin; Z79.84 Long term (current) use of oral hypoglycemic drugs ==

== ENCOUNTER → 2025-03-22 | Outpatient (CLI) | payer MEDICARE ==
[~2025-03-22] MED LIST changes: +BACT800T5 PO; +TRAM50TA2 PO
[2025-03-22] MEDS: XOFIGO(RADIUM-223 DICHLORIDE) 180UCI 6ML VL CHARGE IS PER UCI IV STA (11:43)
== END ==
LOC: M ONCR 10:40
PROVIDERS: ATTEND General Practice
DX: C79.51 Secondary malignant neoplasm of bone (principal); C61 Malignant neoplasm of prostate
CPT/HCPCS: 79101; A9606; G0463

== ENCOUNTER → 2025-04-24 | Outpatient (CLI) | payer MEDICARE | LOC: M ONCR 10:42 | PROVIDERS: ATTEND Radiology Radiation Oncology | DX: C79.51 Secondary malignant neoplasm of bone (principal); C61 Malignant neoplasm of prostate; Z79.01 Long term (current) use of anticoagulants; Z79.1 Long term (current) use of non-steroidal anti-inflammatories (NSAID); Z79.4 Long term (current) use of insulin; Z79.52 Long term (current) use of systemic steroids; Z79.818 Long term (current) use of other agents affecting estrogen receptors and estrogen levels; Z79.82 Long term (current) use of aspirin; Z79.84 Long term (current) use of oral hypoglycemic drugs; Z79.899 Other long term (current) drug therapy; Z88.5 Allergy status to narcotic agent; Z88.8 Allergy status to other drugs, medicaments and biological substances ==

== ENCOUNTER 2025-06-17 09:37 | Emergency (ER) | payer MEDICARE ==
[2025-06-17] MEDS: MORPHINE 2 MG/ML 1 ML VIAL IV PRN (11:04)
[2025-06-17 12:06] LABS: PLATELET COUNT, AUTOMATED 192 10^3/uL (150-450)
[2025-06-17 12:32] LABS: CALCIUM LEVEL 8.2 MG/DL (8.3-10.6); CARBON DIOXIDE LEVEL 24.0 MMOL/L (20-31); CHLORIDE LEVEL 107.0 MMOL/L (98-107); CREATININE FOR GFR 0.8 MG/DL (0.70-1.30); GLOMERULAR FILTRATION RATE 90.0 (>42); POTASSIUM SERUM 3.6 MMOL/L (3.5-5.1); SODIUM LEVEL 140.0 MMOL/L (136-145)
[2025-06-17] MEDS: NS (Normal Saline) 0.9% 1,000 ML IV SCH (14:24)
[2025-06-17 19:45] VITALS: BP 127/56; TEMP 97.9; O2SAT 97
== END 2025-06-17 19:55 | disposition short-term general hospital (02) ==
LOC: EDBD 09:37 → M ED 09:37
DX: T84.021A Dislocation of internal left hip prosthesis, initial encounter (principal); M84.452A Pathological fracture, left femur, initial encounter for fracture; X58.XXXA Exposure to other specified factors, initial encounter; Y92.009 Unspecified place in unspecified non-institutional (private) residence as the place of occurrence of the external cause; Y93.89 Activity, other specified; Y99.9 Unspecified external cause status; C61 Malignant neoplasm of prostate; I48.91 Unspecified atrial fibrillation; J45.909 Unspecified asthma, uncomplicated; E11.9 Type 2 diabetes mellitus without complications; I11.0 Hypertensive heart disease with heart failure